=== PATIENT | female | born 1985 | race Caucasian/White ===

== ENCOUNTER 2018-08-07 10:46 | Emergency (ER) | payer OTHER, MEDICAID, SELFPAY ==
[2018-08-07 10:55] VITALS: BP 107/68; PULSE 76; RESP 12; TEMP 37; O2SAT 99
--- NOTE | 2018-08-07 12:21 | ED.SKABFB ---
HPI - Skin/Abscess/Foreign Bdy <Laney Mcintyre PA-C - Last Filed: 08/07/18 18:54> General Chief complaint: Skin/Abscess/Foreign Body Stated complaint: Possible ingrown toe nail, R big toe Time Seen by Provider: 08/07/18 11:04 Source: patient Mode of arrival: ambulatory Limitations: no limitations History of Present Illness HPI narrative: This 33-year-old female comes in due to concern for right ingrown toenail. She has not had ingrown nails on her ft in the past. She states this started to get painful 4 days ago, and much worse and more red since yesterday. She has not had any drainage from the toe. She has not had any fever or other new symptoms. She states that it is painful to wear shoes. She has been taking ibuprofen and wondering what else to do for pain as this has not been effective. She did not think she could get in to see her PCP before work so came here. She denies any other new complaints on systems review Related Data Home Medications Medication Instructions Recorded Confirmed acetaminophen [Tylenol] 325 mg PO PRN PRN 08/07/18 08/07/18 ibuprofen 200 mg PO PRN PRN 08/07/18 08/07/18 Allergies Allergy/AdvReac Type Severity Reaction Status Date / Time Penicillins Allergy Severe ANAPHYLAXIS Unverified 05/16/18 10:16 /FAREED Review of Systems <Laney Mcintyre PA-C - Last Filed: 08/07/18 18:54> Review of Systems All systems reviewed & are unremarkable except as noted in HPI and below Exam <Laney Mcintyre PA-C - Last Filed: 08/07/18 18:54> Narrative Exam Narrative: GENERAL APPEARANCE: Patient sitting comfortably, in no distress. LUNGS: Clear to auscultation bilaterally. HEART: Rate and rhythm regular without murmur, normal S1 and S2, no S3 or S4. DERMATOLOGIC: Right great toenail is erythematous and mildly edematous around the medial and proximal borders, tender to touch, no drainage, no erythema elsewhere MUSCULOSKELETAL: Normal range of motion of the right great toe and foot without tenderness NEUROVASCULAR: Right foot is warm and pink, sensation grossly intact Initial Vital Signs Initial Vital Signs: Vital Signs Temperature 98.6 F 08/07/18 10:55 Pulse Rate 76 08/07/18 10:55 Respiratory Rate 12 08/07/18 10:55 Blood Pressure 107/68 08/07/18 10:55 Pulse Oximetry 99 08/07/18 10:55 <Kana Garcia DO - Last Filed: 08/07/18 18:58> Initial Vital Signs Initial Vital Signs: Vital Signs Temperature 98.6 F 08/07/18 10:55 Pulse Rate 76 08/07/18 10:55 Respiratory Rate 12 08/07/18 10:55 Blood Pressure 107/68 08/07/18 10:55 Pulse Oximetry 99 08/07/18 10:55 Course <Lanye Mcintyre PA-C - Last Filed: 08/07/18 18:54> Vital Signs - 8 hr 08/07/18 10:55 Temperature 98.6 F Pulse Rate 76 Respiratory Rate 12 Blood Pressure 107/68 Pulse Oximetry 99 <Kana Garcia DO - Last Filed: 08/07/18 18:58> Vital Signs - 8 hr 08/07/18 10:55 Temperature 98.6 F Pulse Rate 76 Respiratory Rate 12 Blood Pressure 107/68 Pulse Oximetry 99 Discharge Plan Departure Patient Disposition: Home Clinical Impression: Infection, nail, ingrowing Discharge Date/Time: 08/07/18 13:07 Interventions: ED Discharge Assessment Last Done: 08/07/18 13:05 Instructions: DI for Ingrown Toenail Activity Restrictions/Additional Instructions: Please wear the surgical shoe for comfort and to keep pressure off of the toe. Hot soak your toe for 5-10 minutes at least 4-5 times daily, then try to free up the nail border by putting dental floss or cotton underneath, or you can use a file to gently elevate it. Take the prescription anti-inflammatory meloxicam once daily to help with pain and inflammation, and you can also add Tylenol as needed. Please call your PCP office today and arrange for follow-up in a few days for recheck. You can find out whether they removed toenails there if it is needed at that point, or you can call the local podiatrists (I have given you their number as well) Prescriptions: No Action acetaminophen [Tylenol] 325 mg Tablet 325 mg PO PRN PRN (Reason: Pain, Mild) RF: 0 ibuprofen 200 mg Tablet 200 mg PO PRN PRN (Reason: Pain, Mild) RF: 0 Referrals: [facility] [Provider Group] [facility] [Provider Group] <Kana Garcia DO - Last Filed: 08/07/18 18:58> Cosign ED Attending Cristina Attestation: I was immediately available in the department for consultation. Documentation has been reviewed. I agree with assessment and plan.
== END 2018-08-07 13:07 | disposition home or self-care (01) ==
PROVIDERS: Emergency Provider Internal Medicine; PCP Family Medicine
DX: L60.0 Ingrowing nail (principal)
CPT/HCPCS: 99282

== ENCOUNTER 2018-11-19 10:02 | Emergency (ER) | payer OTHER, MEDICAID, SELFPAY ==
[2018-11-19 10:22] VITALS: BP 138/78; PULSE 102; RESP 17; TEMP 36.9; O2SAT 100
[2018-11-19 10:45] LABS: Bacteria Urine Many (>30); Culture Indicated Urine Cult Not Indicated; RBC Urine 1-5/HPF (0-5/HPF); Squamous Epithelial Cell Urine 10-30 /HPF; WBC Urine 1-5/HPF (0-5/HPF)
--- NOTE | 2018-11-19 11:33 | ED_ITS ---
HPI - Back Pain/Injury General Chief Complaint: Back Pain/Injury Stated Complaint: LOWER BACK PAIN Time Seen by Provider: 11/19/18 11:06 Source: patient Mode of arrival: ambulatory Limitations: no limitations History of Present Illness HPI Narrative: Patient is a 33-year-old female who presents with right-sided back pain. It started this morning quite significant denies any radiation to her stomach no painful frequent urination. She has had the chills but denies any fever. Pain is nonradiating down her leg. She has chronic ongoing back pain she says this is something different. MD Complaint: back pain Duration: progressively worsening Location: right flank Related Data Home Medications Medication Instructions Recorded Confirmed acetaminophen [Tylenol] 325 mg PO PRN PRN 08/07/18 08/07/18 ibuprofen 200 mg PO PRN PRN 08/07/18 08/07/18 Previous Rx's Medication Instructions Recorded sulfamethoxazole-trimethoprim 1 tab PO Q12H #14 tab 11/19/18 Allergies Allergy/AdvReac Type Severity Reaction Status Date / Time Penicillins Allergy Severe ANAPHYLAXIS Verified 11/19/18 10:22 /FAREED Review of Systems Review of Systems ROS Unobtainable: All systems reviewed & are unremarkable except as noted in HPI and below Constitutional Denies body ache(s), Reports chills, Denies fatigue and Denies fever(s) Cardiovascular Denies chest pain, Denies irregular heart rhythm, Denies lightheadedness, Denies palpitations, Denies dyspnea, Denies dyspnea on exertion and Denies orthopnea Respiratory Denies cough, Denies dyspnea, Denies dyspnea on exertion and Denies wheezing Gastrointestinal Gastrointestinal: Denies abdominal pain, Denies change in bowel habits, Denies diarrhea, Denies nausea and Denies vomiting Musculoskeletal Denies back pain, Denies muscle weakness, Denies numbness and Denies tingling Integumentary/Breasts Denies pruritus, Denies erythema, Denies rash and Denies wounds Neurologic Denies numbness and Denies tingling Endocrine Denies fatigue and Denies palpitations Allergic/Immunologic Denies wheezing [facility] Medical History Factor 5 Leiden mutation, heterozygous (Chronic) Status post tubal ligation (Resolved) Surgical History Status post D&C (Resolved) Status post tonsillectomy (Resolved) Family History Brother Age: 24 Autism Mother Age: 65 Factor V Leiden Sister Age: 36 Factor V Leiden Social History Smoking Status: Former smoker Tobacco: How many years used: 14 second hand exposure: Yes alcohol intake: current (occasionally.) substance use type: does not use Family History Brother Age: 24 Autism Mother Age: 65 Factor V Leiden Sister Age: 36 Factor V Leiden Social History Smoking Status: Former smoker Tobacco: How many years used: 14 second hand exposure: Yes alcohol intake: current (occasionally.) substance use type: does not use Exam Initial Vital Signs Initial Vital Signs: Vital Signs Temperature 98.4 F 11/19/18 10:22 Pulse Rate 102 H 11/19/18 10:22 Respiratory Rate 17 11/19/18 10:22 Blood Pressure 138/78 11/19/18 10:22 Pulse Oximetry 100 11/19/18 10:22 GENERAL: lying on the left side appears slightly uncomfortable but nontoxic awake alert oriented x3 HEENT: Head atraumatic,EOMI, pupils reactive, CARDIOVASCULAR: Regular rate and rhythm without murmurs, rubs or gallops. RESPIRATORY: Breath sounds equal bilaterally, no wheezes rales or rhonchi. ABDOMEN: Soft, nontender. Normoactive bowel sounds all 4 quadrants. No guarding or rebound. : Mild right CVA tenderness EXTREMITIES: Normal range of motion, no clubbing or edema. Neurovascularly intact NEUROLOGICAL: Alert and oriented x4.Normal gait and speech. SKIN: Warm, dry, no laceration, no petechiae, no rashes or lesions. Course Orders Ordered: ED Orders 11/19/18 10:30 Urine Microscopic Stat 11/19/18 11:34 CT kidney ureter bladder (KUB) Stat 11/19/18 12:20 Basic Metabolic Panel Stat Complete Blood Count AUTO DIFF Stat Discontinued Medications Ketorolac Tromethamine (Toradol) 30 mg IV NOW ONE Stop: 11/19/18 11:37 Last Admin: 11/19/18 12:10 Dose: 30 mg Vital Signs - 8 hr 11/19/18 10:22 11/19/18 13:25 Temperature 98.4 F Pulse Rate 102 H 79 Respiratory Rate 17 20 Blood Pressure 138/78 119/83 Pulse Oximetry 100 100 MDM - Back Pain/Injury Lab Data Attestation: I reviewed the patient's lab results. Result diagrams: 11/19/18 12:20 11/19/18 12:20 Lab Results 11/19/18 11/19/18 11/19/18 Range/Units 10:30 12:20 12:20 WBC 14.0 H (4.5-11.0) X10^3/uL RBC 5.06 (4.0-5.2) X10^6/uL Hgb 15.2 (12.0-16.0) g/dL Hct 45.0 (36-46) % MCV 89.0 (80-100) fL MCH 30.0 (26-34) PG MCHC 33.7 (30-36) % RDW 13.3 (11.6-14.8) % Plt Count 251 (150-400) X10^3/uL Neut % (Auto) 70.2 (50-75) % Lymph % (Auto) 22.5 L (25-40) % [place] % (Auto) 5.5 (3-14) % Eos % (Auto) 1.1 L (2-4) % Baso % (Auto) 0.7 (0-2) % Neut # (Auto) 9800 H (2200-4087) /uL Lymph # (Auto) 3100 (1600-0326) /uL [place] # (Auto) 800 (0-900) /uL Eos # (Auto) 200 (0-450) /uL Baso # (Auto) 100 (0-100) /uL Sodium 141 (137-145) mmol/L Potassium 4.5 (3.4-5.1) mmol/L Chloride 105 (98-107) mmol/L Carbon Dioxide 27 (22-32) mmol/L BUN 11 (7-17) mg/dL Creatinine 0.70 (0.52-1.04) mg/dL Estimated GFR > 60.0 (>60) mL/min BUN/Creatinine Ratio 15.7 (6-22) Glucose 94 (70-100) mg/dL Calcium 9.2 (8.4-10.2) mg/dL Urine RBC 1-5/hpf (0-5/HPF) Urine WBC 1-5/hpf (0-5/HPF) Ur Squamous Epith Cells 10-30 /hpf H Urine Bacteria Many (>30) H (None) Ur Culture Indicated? Cult not indicated Point of Care Testing Test Results Negative Urine Dip Bedside Urine Glucose Negative Bedside Urine Bilirubin - Negative Bedside Urine Ketone - Negative Urine Specific [place] 1.025 Bedside Urine Occult Blood ++ Bedside Urine pH 6.0 Bedside Urine Protein +/- 15 Bedside Urine Urobilinogen - Negative Bedside Urine Nitrite - Negative Bedside Urine Leukocytes - Negative Esterase Imaging Data CT scan - abdomen: Radiologist's impression: PROCEDURE: CT KIDNEY URETER BLADDER (KUB) INDICATIONS: right flank pain TECHNIQUE: Noncontrast 5 mm thick sections acquired from the diaphragms to the symphysis. 5 mm thick coronal and sagittal reformats were then performed. For radiation dose reduction, the following was used: automated exposure control, adjustment of mA and/or kV according to patient size. COMPARISON: [facility], CT, ABDOMEN/PELVIS WITH CONTRAST, 06/25/2013, 15:09. FINDINGS: Image quality: Excellent. Lung bases: Lung bases are clear. Heart size is normal. Urinary system: Both kidneys are normal in size. No kidney stones. No hydronephrosis or perinephric fat stranding. Both ureters appear non-dilated throughout their expected courses. There is partial distention of the urinary bladder with suggestion of mild bladder wall thickening. No calcified bladder stones. Other solid organs: Liver is normal in size. Gallbladder demonstrates no calcified gallstones. Pancreas is normal in contours. Spleen is normal in size. No adrenal nodules. Peritoneum and bowel: Unenhanced bowel loops demonstrate normal wall thickness and caliber. The appendix is normal in appearance. There is mild colonic diverticulosis without acute diverticulitis. No free fluid or air. Nodes and vessels: No retroperitoneal or mesenteric adenopathy by size criteria. Aorta and inferior vena cava are normal in caliber. Abdominal wall: No ventral hernias. Pelvis: There is a small amount of endometrial fluid which appears within physiologic limits. There is a small left ovarian cyst measuring up to 1.5 cm likely representing a follicular cyst. No free pelvic fluid. No inguinal hernias or adenopathy. Bones: No suspicious bony lesions. No vertebral body compression fractures. IMPRESSION: 1. No evidence of nephrolithiasis or obstructive uropathy. 2. No evidence of appendicitis. 3. Suggestion of mild bladder wall thickening although the urinary bladder is incompletely distended. Recommend correlation with urinalysis for possible cystitis. 4. Small amount of endometrial fluid and small left ovarian cyst likely physiologic. If clinical concern persists, further evaluation may be obtained with a pelvic ultrasound. Dictated by: Reagan Chandler M.D. on 11/19/2018 at 12:25 MDM Narrative Medical decision making narrative: patient has significant pain with blood in her urine. No sign of kidney stone. Possible kidney infection. Will treat for kidney infection. He is not appear toxic she does have a mild leukocytosis she is afebrile. Discharge Plan Departure Patient Disposition: Home Clinical Impression: UTI (urinary tract infection) Qualifiers: Urinary tract infection type: acute pyelonephritis Qualified Code(s): N10 - Acute pyelonephritis Discharge Date/Time: 11/19/18 13:25 Interventions: ED Discharge Assessment Last Done: 11/19/18 13:25 Instructions: Kidney Infection Activity Restrictions/Additional Instructions: *You have been diagnosed with kidney infection *What to do: increase fluid intake, CT did not show any kidney stone *Continue to take medications as directed - Bactrim 1 pill twice a day for 7 days - Motrin 800 mg every 8 hr if needed for pain *Follow up with your primary care provider in 2-3 days *Return to ER if you should have fever inability keep antibiotics down worsening any new, worsening or concerning symptoms Prescriptions: New sulfamethoxazole-trimethoprim 800-160 mg tablet 1 tab PO Q12H Qty: 14 RF: 0 No Action acetaminophen [Tylenol] 325 mg Tablet 325 mg PO PRN PRN (Reason: Pain, Mild) RF: 0 ibuprofen 200 mg Tablet 200 mg PO PRN PRN (Reason: Pain, Mild) RF: 0 Referrals: Sasha Holland DO [Primary Care Provider] -
--- NOTE | 2018-11-19 12:03 | PC.NURSE ---
Attempts x2 for IV start. Unsuccessful
[2018-11-19] MEDS: KETOROLAC 60 MG/2 ML VIAL 30 MG IV (12:10)
[2018-11-19 12:26] LABS: Add Manual Diff / Slide Review NO; Basophils Absolute Auto 100 /uL (0-100); Basophils Percent Auto 0.7 % (0-2); Eosinophils Absolute Auto 200 /uL (0-450); Eosinophils Percent Auto 1.1 % (2-4); Hemoglobin 15.2 g/dL (12.0-16.0); Lymphocytes Absolute Auto 3100 /uL (1100-4500); Lymphocytes Percent Auto 22.5 % (25-40); Mean Corpuscular HGB Conc 33.7 % (30-36); Monocytes Absolute Auto 800 /uL (0-900); Monocytes Percent Auto 5.5 % (3-14); Neutrophils Absolute Auto 9800 /uL (1500-7000); Neutrophils Percent Auto 70.2 % (50-75); Platelet Count 251 X10^3/uL (150-400); Red Blood Cell Count 5.06 X10^6/uL (4.0-5.2); Red Cell Distribution Width 13.3 % (11.6-14.8)
[2018-11-19 12:36] LABS: BUN Creatinine Ratio 15.7 (6-22); Blood Urea Nitrogen 11 mg/dL (7-17); Calcium 9.2 mg/dL (8.4-10.2); Carbon Dioxide 27 mmol/L (22-32); Chloride 105 mmol/L (98-107); Estimated Glomerular Filt Rate > 60.0 mL/min (>60); Glucose 94 mg/dL (70-100); HEMOLYSIS < 15 (0-50); Potassium 4.5 mmol/L (3.4-5.1); Sodium 141 mmol/L (137-145)
[2018-11-19 13:25] VITALS: BP 119/83; PULSE 79; RESP 20; O2SAT 100
== END 2018-11-19 13:25 | disposition home or self-care (01) ==
PROVIDERS: Emergency Provider Emergency Medicine; PCP Family Medicine
DX: N10 Acute pyelonephritis (principal)
CPT/HCPCS: 36415; 74176; 80048; 81003; 81015; 81025; 85025; 96374; 99283; 99284; J1885

== ENCOUNTER 2018-12-12 23:13 | Emergency (ER) | payer OTHER, MEDICAID, SELFPAY ==
[2018-12-12 23:24] VITALS: BP 111/74; PULSE 86; RESP 15; TEMP 36.3; O2SAT 95; BMI 26.5
[2018-12-12 23:53] LABS: WBC Urine None Seen (0-5/HPF)
[2018-12-12 23:59] LABS: Hyaline Casts Urine 0-1/LPF; Mucus Urine 2+ (Negative); RBC Urine 1-5/HPF (0-5/HPF); Squamous Epithelial Cell Urine 0-1 /HPF
[2018-12-13] LABS: Bacteria Urine Occasional (0-1); Culture Indicated Urine Cult Not Indicated
[2018-12-13] MEDS: levoFLOXacin 250 MG TABLET 500 MG PO (02:09)
[2018-12-13 02:27] VITALS: BP 109/69; PULSE 73; RESP 12; O2SAT 95
--- NOTE | 2018-12-13 05:46 | ED_ITS ---
HPI - Female Genitourinary General Chief complaint: Urogenital-Female Stated complaint: thinks she has another kidney infection' Time Seen by Provider: 12/13/18 00:00 Source: patient and family Mode of arrival: ambulatory Limitations: no limitations History of Present Illness HPI Narrative: 33-year-old female former smoker with history of pyelonephritis and chronic low back pain presents with a chief complaint of an episode of hematuria over the weekend and now some midline lumbar pain and occasional radiation around her flanks. She denies dysuria, frequency or urgency. She denies fever or shaking chills. She denies nausea, vomiting or diarrhea. She denies vaginal bleeding or discharge. She denies any radiation of the pain down her legs. She states she has a long history of urinary tract infections that do not initially demonstrate classic findings and then progressed to pyelonephritis. MD Complaint: UTI Onset (ago): day(s) Location: suprapubic Female Urogenital Radiation: L Flank and R Flank Severity: mild Duration: constant Relieving factors: none Exacerbating factors: none Urinary symptoms: Flank Pain Related Data Home Medications Medication Instructions Recorded Confirmed acetaminophen [Tylenol] 325 mg PO PRN PRN 08/07/18 08/07/18 ibuprofen 200 mg PO PRN PRN 08/07/18 08/07/18 Previous Rx's Medication Instructions Recorded sulfamethoxazole-trimethoprim 1 tab PO Q12H #14 tab 11/19/18 ciprofloxacin HCl 500 mg PO BID 14 Days #28 tab 12/13/18 Allergies Allergy/AdvReac Type Severity Reaction Status Date / Time Penicillins Allergy Severe ANAPHYLAXIS Verified 12/12/18 23:24 /HIVES Review of Systems Constitutional Denies chills, Denies fever(s), Denies lethargy and Denies weakness Eyes Denies change in vision, Denies eye discharge, Denies irritation and Denies loss of vision ENT Ears, Nose, Mouth, and Throat: Denies change in voice, Denies neck pain and Denies sore throat Cardiovascular Denies chest pain, Denies irregular heart rhythm, Denies lightheadedness, Denies palpitations, Denies dyspnea, Denies dyspnea on exertion and Denies orthopnea Respiratory Denies cough, Denies dyspnea, Denies dyspnea on exertion and Denies wheezing Gastrointestinal Gastrointestinal: Denies abdominal pain, Denies change in bowel habits, Denies diarrhea, Denies nausea and Denies vomiting Genitourinary Reports hematuria, Denies flank pain, Denies urinary incontinence and Denies urinary urgency Musculoskeletal Reports back pain and Denies neck pain Integumentary/Breasts Denies pruritus, Denies erythema, Denies rash and Denies wounds Neurologic Denies confusion, Denies loss of vision and Denies weakness Psychiatric Denies anxiety, Denies confusion, Denies depression, Denies homicidal ideation and Denies suicidal ideation Endocrine Denies palpitations Hematologic/Lymphatic Denies easy bruising Allergic/Immunologic Denies wheezing [facility] Medical History Factor 5 Leiden mutation, heterozygous (Chronic) Status post tubal ligation (Resolved) Surgical History Status post D&C (Resolved) Status post tonsillectomy (Resolved) Family History Brother Age: 24 Autism Mother Age: 65 Factor V Leiden Sister Age: 36 Factor V Leiden Social History Smoking Status: Former smoker Tobacco: How many years used: 14 second hand exposure: Yes alcohol intake: current (occasionally.) substance use type: does not use Family History Brother Age: 24 Autism Mother Age: 65 Factor V Leiden Sister Age: 36 Factor V Leiden Social History Smoking Status: Former smoker Tobacco: How many years used: 14 second hand exposure: Yes alcohol intake: current (occasionally.) substance use type: does not use Exam Narrative Exam Narrative: GENERAL: 33-year-old female This is a well-nourished, well- developed patient, in mild distress. HEAD: Atraumatic. Normocephalic. No temporal or scalp tenderness. EYES: Pupils equal round and reactive. Extraocular motions intact. No scleral icterus. No injection or drainage. ENT: Nose without bleeding, purulent drainage or septal hematoma. Throat without erythema, tonsillar hypertrophy or exudate. Uvula midline. Airway patent. NECK: Trachea midline. No JVD or lymphadenopathy. Supple, nontender, no meningeal signs. CARDIOVASCULAR: Regular rate and rhythm without murmurs, gallops, or rubs. RESPIRATORY: Clear to auscultation. Breath sounds equal bilaterally. No wheezes, rales, or rhonchi. GASTROINTESTINAL: Abdomen soft, non-tender, nondistended. No hepato- splenomegaly, or palpable masses. No guarding. EXTREMITIES: No clubbing, cyanosis, or edema. No joint tenderness, effusion, or edema noted. BACK: pick pulling machine tender but free of any obvious external abnormalities. Patient exam notes decreased range of motion and muscle spasm, but no CVA tenderness, or vertebral point tenderness. There are no symptoms of cauda equina such as saddle anesthesia, and decreased reflexes, decreased sensation or strength. NEURO: AOx3. SKIN: No rash or erythema. Initial Vital Signs Initial Vital Signs: Vital Signs Temperature 97.4 F L 12/12/18 23:24 Pulse Rate 86 12/12/18 23:24 Respiratory Rate 15 12/12/18 23:24 Blood Pressure 111/74 12/12/18 23:24 Pulse Oximetry 95 12/12/18 23:24 Course Orders Ordered: ED Orders 12/12/18 23:30 Urine Microscopic Stat Discontinued Medications Levofloxacin (Levaquin) 500 mg PO NOW ONE Stop: 12/13/18 01:50 Last Admin: 12/13/18 02:09 Dose: 500 mg Vital Signs - 8 hr 12/12/18 23:24 12/13/18 02:27 Temperature 97.4 F L Pulse Rate 86 73 Respiratory Rate 15 12 Blood Pressure 111/74 Blood Pressure [Right Arm] 109/69 Pulse Oximetry 95 95 MDM - Female Genitourinary Lab Data Lab Results 12/12/18 Range/Units 23:30 Urine RBC 1-5/hpf (0-5/HPF) Urine WBC None seen (0-5/HPF) Ur Squamous Epith Cells 0-1 /hpf D Urine Bacteria Occasional (0-1) D (None) Hyaline Casts 0-1/lpf (None) Urine Mucus 2+ H (Negative) Ur Culture Indicated? Cult not indicated Point of Care Testing Test Results Negative Urine Dip Bedside Urine Glucose Negative Bedside Urine Bilirubin - Negative Bedside Urine Ketone - Negative Urine Specific [place] 1.030 Bedside Urine Occult Blood ++ Bedside Urine pH 6.0 Bedside Urine Protein +/- 15 Bedside Urine Urobilinogen +/- 1mg Bedside Urine Nitrite - Negative Bedside Urine Leukocytes - Negative Esterase MDM Narrative Medical decision making narrative: Patient had hematuria and now complains of bilateral flank pain, series of symptoms consistent with prior episodes of pyelonephritis for her. She frequently has similar scenarios where the initial UTI is missed and goes on to develop pyelonephritis. We discussed this at length and our initial urine does not suggest urinary tract infection but I am willing to give the antibiotic given her request and her prior experiences Discharge Plan Departure Patient Disposition: Home Clinical Impression: Back pain Qualifiers: Back pain location: low back pain Chronicity: acute Back pain laterality: bilateral Sciatica presence: without sciatica Qualified Code(s): M54.5 - Low back pain UTI (urinary tract infection) Qualifiers: Urinary tract infection type: acute pyelonephritis Qualified Code(s): N10 - Acute pyelonephritis Discharge Date/Time: 12/13/18 02:35 Interventions: ED Discharge Assessment Last Done: 12/13/18 02:35 Instructions: DI for Kidney Infection Activity Restrictions/Additional Instructions: *You have been diagnosed with [ low back pain, hematuria (blood in urine) and likely pyelonephritis (kidney infection) ] *What to do: *Take medications as directed: your antibiotic was electronically transmitted to [facility] in [place] *Follow up with your primary care provider in 2-3 days, call for an appointment. Let them know you were seen in the Emergency Department and that we ask that you be seen in follow up *Return to ER if you should have any new, worsening or concerning symptoms Prescriptions: New ciprofloxacin HCl 500 mg tablet 500 mg PO BID 14 Days Qty: 28 RF: 0 No Action sulfamethoxazole-trimethoprim 800-160 mg tablet 1 tab PO Q12H Qty: 14 RF: 0 acetaminophen [Tylenol] 325 mg Tablet 325 mg PO PRN PRN (Reason: Pain, Mild) RF: 0 ibuprofen 200 mg Tablet 200 mg PO PRN PRN (Reason: Pain, Mild) RF: 0 Referrals: Sasha Holland, [Primary Care Provider] -
== END 2018-12-13 02:35 | disposition home or self-care (01) ==
PROVIDERS: Emergency Provider Emergency Medicine; PCP Family Medicine
DX: M54.5 Low back pain (principal); N10 Acute pyelonephritis
CPT/HCPCS: 81003; 81015; 81025; 99283

== ENCOUNTER → 2019-02-01 10:19 | Outpatient (CLI) | payer OTHER, MEDICAID, SELFPAY ==
--- NOTE | 2019-02-01 10:21 | DI.US.S_ITS ---
PROCEDURE: US EXTREMITY NONVASC LOWER RT INDICATIONS: NODULE RIGHT UPPER THIGH TECHNIQUE: Real-time scanning was performed of the right mid upper thigh, with image documentation. COMPARISON: None. FINDINGS: Within the area of palpable abnormality at the right mid-upper thigh, there is a subcutaneous echogenic focus measuring 1.3 x 0.6 x 1.7 cm, although no definite vascularity. This findings technically nonspecific although could represent lipoma. IMPRESSION: Subcutaneous echogenic focus involving the right thigh in the area of concern. This could represent lipoma although technically nonspecific. Recommend clinical management and followup. If there are suspicious changes by palpation, repeat ultrasound could be performed, or dedicated contrast enhanced MRI could be considered. Dictated by: Willis Curran M.D. on 02/01/2019 at 10:50 Approved by: Willis Curran M.D. on 02/01/2019 at 10:52
== END ==
PROVIDERS: PCP Nurse Practitioner Family; Visit Provider Nurse Practitioner Family
DX: R22.41 Localized swelling, mass and lump, right lower limb (principal)
CPT/HCPCS: 76882

== ENCOUNTER 2019-04-24 14:40 | Emergency (ER) | payer OTHER, MEDICAID, SELFPAY ==
[2019-04-24 14:49] VITALS: BP 134/94; PULSE 83; RESP 13; TEMP 36.2; O2SAT 100
--- NOTE | 2019-04-24 14:54 | DI.RAD.S_ITS ---
PROCEDURE: XR CHEST 1V INDICATIONS: chest pain TECHNIQUE: One view of the chest was acquired. COMPARISON: [facility], CT, PE STUDY (CTA CHEST), 05/25/2016, 18:29. FINDINGS: Surgical changes and devices: None. Lungs and pleura: Lungs are clear. No pleural effusions or pneumothorax. Mediastinum: Mediastinal contours appear normal. Heart size is normal. Bones and chest wall: No suspicious bony lesions. Overlying soft tissues appear unremarkable. IMPRESSION: Normal for age, source of current chest pain symptoms is not seen. Dictated by: Raz Olivarez M.D. on 04/24/2019 at 15:35 Approved by: Raz Olivarez M.D. on 04/24/2019 at 15:38
[2019-04-24 15:16] LABS: Add Manual Diff / Slide Review NO; Basophils Absolute Auto 100 /uL (0-100); Basophils Percent Auto 0.9 % (0-2); Eosinophils Absolute Auto 300 /uL (0-450); Hematocrit 43.3 % (36-46); Hemoglobin 14.8 g/dL (12.0-16.0); Lymphocytes Absolute Auto 3500 /uL (1100-4500); Mean Corpuscular HGB Conc 34.3 % (30-36); Mean Corpuscular Hemoglobin 30.4 PG (26-34); Mean Corpuscular Volume 88.8 fL (80-100); Monocytes Absolute Auto 800 /uL (0-900); Neutrophils Absolute Auto 4800 /uL (1500-7000); Neutrophils Percent Auto 51.1 % (50-75); Platelet Count 227 X10^3/uL (150-400); Prothrombin Time 10.9 SECONDS (10.1-12.7); Red Blood Cell Count 4.88 X10^6/uL (4.0-5.2); Red Cell Distribution Width 12.9 % (11.6-14.8); White Blood Cell Count 9.4 X10^3/uL (4.5-11.0)
[2019-04-24 15:18] LABS: PTT Partial Thromboplastin Tim 21 SECONDS (26.4-36.2)
[2019-04-24 15:23] LABS: Alanine Aminotransferase 16 IU/L (9-52); Albumin 4.5 g/dL (3.5-5.0); Albumin Globulin Ratio 1.3 (1.0-2.8); Alkaline Phosphatase 78 U/L (38-126); Aspartate Aminotransferase 27 IU/L (14-36); BUN Creatinine Ratio 14.3 (6-22); Blood Urea Nitrogen 10 mg/dL (7-17); Calcium 9.3 mg/dL (8.4-10.2); Carbon Dioxide 25 mmol/L (22-32); Chloride 103 mmol/L (98-107); Creatine Kinase 79 U/L (30-135); Estimated Glomerular Filt Rate > 60.0 mL/min (>60); Globulin 3.4 g/dL (1.7-4.1); Glucose 87 mg/dL (70-100); HEMOLYSIS 20 (0-50); Lipase 194 U/L (23-300); Potassium 3.8 mmol/L (3.4-5.1); Sodium 140 mmol/L (137-145); Total Protein 7.9 g/dL (6.3-8.2)
[2019-04-24 15:34] VITALS: BP 125/80; PULSE 85; RESP 16; O2SAT 97
[2019-04-24 15:34] LABS: Troponin I < 0.012 ng/mL (0.01-0.034)
--- NOTE | 2019-04-24 15:53 | DI.CT.S_ITS ---
PROCEDURE: CT ANGIO CHEST PE PROTOCOL INDICATIONS: chest pain, hx pe TECHNIQUE: After the administration of intravenous contrast, 2 mm thick sections acquired from the pulmonary apices to the posterior costophrenic angles. 3-dimensional maximum intensity projection (MIP) coronal and sagittal reformats were then acquired through the thorax. For radiation dose reduction, the following was used: automated exposure control, adjustment of mA and/or kV according to patient size. COMPARISON: [facility], CR, XR CHEST 1V, 04/24/2019, 14:57. FINDINGS: Image quality: Excellent. Pulmonary arteries: Pulmonary arteries are normal in size, and demonstrate no intraluminal filling defects to suggest central pulmonary embolism. Lungs and pleura: Lungs are clear. No pleural effusions or pneumothorax. Central and peripheral airways are patent. Mediastinum: Heart size is normal, without pericardial effusion. No mediastinal or hilar adenopathy. Thoracic aorta is normal in caliber and enhancement. Esophagus is normal in caliber, without hiatal hernia. Bones and chest wall: No suspicious bony lesions. Ribs and thoracic spine appear intact throughout. Thyroid gland is unremarkable. No axillary or supraclavicular adenopathy. Abdomen: Hepatic cyst is noted. Visualized upper abdominal solid organs appear normal in the early arterial phase of enhancement. IMPRESSION: 1. Lungs are clear. No pulmonary embolism. Dictated by: Usha Jordan M.D. on 04/24/2019 at 17:43 Approved by: Usha Jordan M.D. on 04/24/2019 at 17:45
--- NOTE | 2019-04-24 15:53 | DI.US.S_ITS ---
PROCEDURE: US PERIPH VENOUS LOW EXTREM BI INDICATIONS: CALF PAIN, HX DVT TECHNIQUE: Real-time imaging, as well as color and pulse Doppler interrogation, were performed of the deep veins of both legs from the inguinal ligament to the popliteal fossa. COMPARISON: None. FINDINGS: Right: The common femoral, femoral and popliteal veins are normally compressible, and free of intraluminal thrombus. Color and pulse Doppler demonstrate normal phasic intravascular flow. There is normal augmentation response to distal compression maneuver. Left: The common femoral, femoral and popliteal veins are normally compressible, and free of intraluminal thrombus. Color and pulse Doppler demonstrate normal phasic intravascular flow. There is normal augmentation response to distal compression maneuver. IMPRESSION: No evidence of deep vein thrombosis of the bilateral lower extremities. Dictated by: Stephen Yang M.D. on 04/24/2019 at 16:06 Approved by: Stephen Yang M.D. on 04/24/2019 at 16:08
--- NOTE | 2019-04-24 17:04 | ED.CHESTPAIN ---
HPI - Chest Pain <CINDI Lorenz- - Last Filed: 04/24/19 20:46> General Chief Complaint: Chest Pain Stated Complaint: SHARP PAINS UNDERNEATH CHEST Time Seen by Provider: 04/24/19 15:48 Source: patient Mode of arrival: ambulatory Limitations: no limitations History of Present Illness HPI narrative: The patient is a 31-year-old female who presents with a chief complaint of right-sided chest pain. She is a nonsmoker with history of PE, DVT and factor 5 Leiden deficiency. She states she started having some right-sided chest pain this morning. She states that yesterday she had some left calf pain. She denies any nausea vomiting or diarrhea. She does have a chief complaint of right-sided chest pain, which does not extend into her left side. She states some radiation to her back. She denies possibility of as she has had her ?tubes tied. Related Data Home Medications Medication Instructions Recorded Confirmed acetaminophen [Tylenol] 325 mg PO PRN PRN 08/07/18 04/24/19 ibuprofen 200 mg PO PRN PRN 08/07/18 04/24/19 aspirin 81 mg tablet,delayed 81 mg PO DAILY PRN 04/24/19 04/24/19 release Previous Rx's Medication Instructions Recorded cyclobenzaprine 10 mg PO TID PRN #14 tab 04/24/19 ketorolac 10 mg PO TID PRN #10 tab 04/24/19 Allergies Allergy/AdvReac Type Severity Reaction Status Date / Time Penicillins Allergy Severe ANAPHYLAXIS Verified 04/24/19 14:15 /HIVKENRICK Review of Systems <PETRONA Lorenz - Last Filed: 04/24/19 20:46> Review of Systems GENERAL: Denies chills, fatigue, malaise, fever, sweats. HEENT: Denies sinus pain, ear pain, sore throat, difficulty swallowing, dizziness. RESPIRATORY: See HPI CARDIOVASCULAR: See HPI GASTROINTESTINAL: Denies nausea, vomiting, abdominal pain, diarrhea, constipation, melena. : Denies dysuria, frequency, incontinence, hematuria, urinary retention. MUSCULOSKELETAL: See HPI SKIN: Denies rash, skin lesions, or other NEUROLOGIC: Denies weakness, headache, numbness, change in speech, confusion, seizures, incoordination. PSYCHIATRIC: No concerning psychosocial issues. 12 point review of systems is negative except for those stated above PFSH <WALTER Lorenz - Last Filed: 04/24/19 20:46> Medical History Chronic low back pain (Acute) Pyelonephritis (Acute) Factor 5 Leiden mutation, heterozygous (Chronic) Status post tubal ligation (Resolved) Surgical History Status post D&C (Resolved) Status post tonsillectomy (Resolved) Family History Brother Age: 25 Autism Mother Age: 66 Factor V Leiden Sister Age: 37 Factor V Leiden Social History Smoking Status: Former smoker Tobacco: How many years used: 14 second hand exposure: Yes alcohol intake: current (1-2 beers or glasses or wine daily and 2 mixed drinks every other weekend.) substance use type: does not use Family History Brother Age: 25 Autism Mother Age: 66 Factor V Leiden Sister Age: 37 Factor V Leiden Social History Smoking Status: Former smoker Tobacco: How many years used: 14 second hand exposure: Yes alcohol intake: current (1-2 beers or glasses or wine daily and 2 mixed drinks every other weekend.) substance use type: does not use Exam <WALTER Lorenz - Last Filed: 04/24/19 20:46> Narrative Exam Narrative: GENERAL: This is a well-nourished, well-developed patient, no acute distress HEAD: Atraumatic. Normocephalic. No temporal or scalp tenderness. EYES: Pupils equal round and reactive. Extraocular motions intact. No scleral icterus. No injection or drainage. ENT: Nose without bleeding, purulent drainage or septal hematoma. Throat without erythema, tonsillar hypertrophy or exudate. Uvula midline. Airway patent. NECK: Trachea midline. No JVD or lymphadenopathy. Supple, nontender, no meningeal signs. CARDIOVASCULAR: Regular rate and rhythm without murmurs, gallops, or rubs. RESPIRATORY: Clear to auscultation. Breath sounds equal bilaterally. No wheezes, rales, or rhonchi. Cough and increased respiratory effort. No accessory muscle use. GASTROINTESTINAL: Abdomen soft, non-tender, nondistended. No hepato-splenomegaly, or palpable masses. No guarding. EXTREMITIES: No clubbing, cyanosis, or edema. No joint tenderness, effusion, or edema noted. BACK: Nontender without deformity or crepitance. No flank tenderness. NEURO: AOx3. SKIN: No rash or erythema. Initial Vital Signs Initial Vital Signs: Vital Signs Temperature 97.2 F L 04/24/19 14:49 Pulse Rate 83 04/24/19 14:49 Respiratory Rate 13 04/24/19 14:49 Blood Pressure 134/94 H 04/24/19 14:49 Pulse Oximetry 100 04/24/19 14:49 <Gricelda Kong DO - Last Filed: 04/25/19 20:00> Initial Vital Signs Initial Vital Signs: Vital Signs Temperature 97.2 F L 04/24/19 14:49 Pulse Rate 83 04/24/19 14:49 Respiratory Rate 13 04/24/19 14:49 Blood Pressure 134/94 H 04/24/19 14:49 Pulse Oximetry 100 04/24/19 14:49 Course <CINDI Lorenz-BC - Last Filed: 04/24/19 20:46> Orders Ordered: Discontinued Medications Cyclobenzaprine HCl (Flexeril) 10 mg PO NOW ONE Stop: 04/24/19 19:03 Last Admin: 04/24/19 19:45 Dose: 10 mg Ketorolac Tromethamine (Toradol) 30 mg IV NOW ONE Stop: 04/24/19 17:55 Last Admin: 04/24/19 17:57 Dose: 30 mg Vital Signs - 8 hr 04/24/19 14:49 04/24/19 15:34 04/24/19 17:33 Temperature 97.2 F L Pulse Rate 83 85 70 Respiratory Rate 13 16 9 L Blood Pressure 134/94 H Blood Pressure [Right Arm] 125/80 122/79 Pulse Oximetry 100 97 99 04/24/19 18:04 04/24/19 19:30 Temperature Pulse Rate 79 78 Respiratory Rate 28 H 15 Blood Pressure Blood Pressure [Right Arm] 131/82 125/68 Pulse Oximetry 100 98 <Gricelda Kong DO - Last Filed: 04/25/19 20:00> Orders Ordered: Discontinued Medications Cyclobenzaprine HCl (Flexeril) 10 mg PO NOW ONE Stop: 04/24/19 19:03 Last Admin: 04/24/19 19:45 Dose: 10 mg Ketorolac Tromethamine (Toradol) 30 mg IV NOW ONE Stop: 04/24/19 17:55 Last Admin: 04/24/19 17:57 Dose: 30 mg Vital Signs - 8 hr 04/24/19 14:49 04/24/19 15:34 04/24/19 17:33 Temperature 97.2 F L Pulse Rate 83 85 70 Respiratory Rate 13 16 9 L Blood Pressure 134/94 H Blood Pressure [Right Arm] 125/80 122/79 Pulse Oximetry 100 97 99 04/24/19 18:04 04/24/19 19:30 Temperature Pulse Rate 79 78 Respiratory Rate 28 H 15 Blood Pressure Blood Pressure [Right Arm] 131/82 125/68 Pulse Oximetry 100 98 MDM - Chest Pain <CINDI Lorenz-BC - Last Filed: 04/24/19 20:46> Lab Data Result diagrams: 04/24/19 14:59 04/24/19 14:59 Lab Results 04/24/19 04/24/19 04/24/19 Range/Units 14:59 14:59 14:59 WBC 9.4 (4.5-11.0) X10^3/uL RBC 4.88 (4.0-5.2) X10^6/uL Hgb 14.8 (12.0-16.0) g/dL Hct 43.3 (36-46) % MCV 88.8 (80-100) fL MCH 30.4 (26-34) PG MCHC 34.3 (30-36) % RDW 12.9 (11.6-14.8) % Plt Count 227 (150-400) X10^3/uL Neut % (Auto) 51.1 (50-75) % Lymph % (Auto) 37.0 (25-40) % [place] % (Auto) 8.0 (3-14) % Eos % (Auto) 3.0 (2-4) % Baso % (Auto) 0.9 (0-2) % Neut # (Auto) 4800 (1754-1269) /uL Lymph # (Auto) 3500 (4702-3914) /uL [place] # (Auto) 800 (0-900) /uL Eos # (Auto) 300 (0-450) /uL Baso # (Auto) 100 (0-100) /uL PT 10.9 (10.1-12.7) SECONDS INR 1.0 (0.9-1.3) APTT 21 L (26.4-36.2) SECONDS Sodium 140 (137-145) mmol/L Potassium 3.8 (3.4-5.1) mmol/L Chloride 103 (98-107) mmol/L Carbon Dioxide 25 (22-32) mmol/L BUN 10 (7-17) mg/dL Creatinine 0.70 (0.52-1.04) mg/dL Estimated GFR > 60.0 (>60) mL/min BUN/Creatinine Ratio 14.3 (6-22) Glucose 87 (70-100) mg/dL Calcium 9.3 (8.4-10.2) mg/dL Total Bilirubin 1.0 (0.2-1.3) mg/dL AST 27 (14-36) IU/L ALT 16 (9-52) IU/L Alkaline Phosphatase 78 (38-126) U/L Total Creatine Kinase 79 (30-135) U/L CK-MB (CK-2) TNP CK-MB (CK-2) Rel Index TNP Troponin I < 0.012 (0.01-0.034) ng/mL B-Natriuretic Peptide (<100) Total Protein 7.9 (6.3-8.2) g/dL Albumin 4.5 (3.5-5.0) g/dL Globulin 3.4 (1.7-4.1) g/dL Albumin/Globulin Ratio 1.3 (1.0-2.8) Lipase 194 (23-300) U/L 04/24/19 Range/Units 14:59 WBC (4.5-11.0) X10^3/uL RBC (4.0-5.2) X10^6/uL Hgb (12.0-16.0) g/dL Hct (36-46) % MCV (80-100) fL MCH (26-34) PG MCHC (30-36) % RDW (11.6-14.8) % Plt Count (150-400) X10^3/uL Neut % (Auto) (50-75) % Lymph % (Auto) (25-40) % [place] % (Auto) (3-14) % Eos % (Auto) (2-4) % Baso % (Auto) (0-2) % Neut # (Auto) (4982-5443) /uL Lymph # (Auto) (3372-7670) /uL [place] # (Auto) (0-900) /uL Eos # (Auto) (0-450) /uL Baso # (Auto) (0-100) /uL PT (10.1-12.7) SECONDS INR (0.9-1.3) APTT (26.4-36.2) SECONDS Sodium (137-145) mmol/L Potassium (3.4-5.1) mmol/L Chloride (98-107) mmol/L Carbon Dioxide (22-32) mmol/L BUN (7-17) mg/dL Creatinine (0.52-1.04) mg/dL Estimated GFR (>60) mL/min BUN/Creatinine Ratio (6-22) Glucose (70-100) mg/dL Calcium (8.4-10.2) mg/dL Total Bilirubin (0.2-1.3) mg/dL AST (14-36) IU/L ALT (9-52) IU/L Alkaline Phosphatase (38-126) U/L Total Creatine Kinase (30-135) U/L CK-MB (CK-2) CK-MB (CK-2) Rel Index Troponin I (0.01-0.034) ng/mL B-Natriuretic Peptide < 100 (<100) Total Protein (6.3-8.2) g/dL Albumin (3.5-5.0) g/dL Globulin (1.7-4.1) g/dL Albumin/Globulin Ratio (1.0-2.8) Lipase (23-300) U/L Imaging Data Venous US: Radiologist's impression: Mara Lakhani 34 F [address] [address] Ultrasound Report Signed Patient: Mara Lakhani LMR#: [id number] : 1985Acct:[id number] Age/Sex: 34 / FDate of Service: 04/24/19 Loc: ED Accession Number: [id number] Procedure: US periph venous low extrem bi Ordering Provider: Gricelda Montgomery PROCEDURE: US PERIPH VENOUS LOW EXTREM BI INDICATIONS: CALF PAIN, HX DVT TECHNIQUE: Real-time imaging, as well as color and pulse Doppler interrogation, were performed of the deep veins of both legs from the inguinal ligament to the popliteal fossa. COMPARISON: None. FINDINGS: Right: The common femoral, femoral and popliteal veins are normally compressible, and free of intraluminal thrombus. Color and pulse Doppler demonstrate normal phasic intravascular flow. There is normal augmentation response to distal compression maneuver. Left: The common femoral, femoral and popliteal veins are normally compressible, and free of intraluminal thrombus. Color and pulse Doppler demonstrate normal phasic intravascular flow. There is normal augmentation response to distal compression maneuver. IMPRESSION: No evidence of deep vein thrombosis of the bilateral lower extremities. Dictated by: Stephen Yang M.D. on 04/24/2019 at 16:06 Approved by: Stephen Yang M.D. on 04/24/2019 at 16:08 chest CTA: Radiologist's impression: [facility] Diagn[facility] DATE TYPE STATUS AUTHOR Hx 04/24/19 15:53 Stephen Yang 04/24/19 15:53 Usha Jordan 04/24/19 14:54 Raz Olivarez 02/01/19 10:21 Willis Curran 11/19/18 11:34 Reagan Chandler 04/22/18 13:00 CT Angiogram Chest 04/22/18 01:00 CT Chest Angiogram Mara Lakhani 34, F0 1985 DEP ER, ED.LOC - Main ED: R05 73.255kg VIP Chest Pain Search Chart No Data to Display ANAPHYLAXIS/HIVES ONSET 12/23/15 12/19/15 05/24/17 Today 19:30 Mara Lakhani 34 F [address] [address] [address] Scan Report Signed Patient: Mara Lakhani LMR#: [id number] : 1985Acct:[id number] Age/Sex: 34 / FDate of Service: 04/24/19 Loc: ED Accession Number: [id number] Procedure: CT angio chest PE protocol Ordering Provider: Gricelda Montgomery DISPENSING OPTICIAN-BC PROCEDURE: CT ANGIO CHEST PE PROTOCOL INDICATIONS: chest pain, hx pe TECHNIQUE: After the administration of intravenous contrast, 2 mm thick sections acquired from the pulmonary apices to the posterior costophrenic angles. 3-dimensional maximum intensity projection (MIP) coronal and sagittal reformats were then acquired through the thorax. For radiation dose reduction, the following was used: automated exposure control, adjustment of mA and/or kV according to patient size. [facility] 14[facility]57. FINDINGS: Image quality: Excellent. Pulmonary arteries: Pulmonary arteries are normal in size, and demonstrate no intraluminal filling defects to suggest central pulmonary embolism. Lungs and pleura: Lungs are clear. No pleural effusions or pneumothorax. Central and peripheral airways are patent. Mediastinum: Heart size is normal, without pericardial effusion. No mediastinal or hilar adenopathy. Thoracic aorta is normal in caliber and enhancement. Esophagus is normal in caliber, without hiatal hernia. Bones and chest wall: No suspicious bony lesions. Ribs and thoracic spine appear intact throughout. Thyroid gland is unremarkable. No axillary or supraclavicular adenopathy. Abdomen: Hepatic cyst is noted. Visualized upper abdominal solid organs appear normal in the early arterial phase of enhancement. IMPRESSION: 1. Lungs are clear. No pulmonary embolism. Dictated by: Usha Jordan M.D. on 04/24/2019 at 17:43 Approved by: Usha Jordan M.D. on 04/24/2019 at 17:45 Chest x-ray: Radiologist's impression: [address] [address] XRay Report Signed Patient: Mara Lakhani LMR#: [id number] : 1985Acct:[id number] Age/Sex: 34 / FDate of Service: 04/24/19 Loc: ED Accession Number: [id number] Procedure: XR chest 1V Ordering Provider: Gricelda Kong D.O. PROCEDURE: XR CHEST 1V INDICATIONS: chest pain TECHNIQUE: One view of the chest was acquired. COMPARISON: [facility], CT, PE STUDY (CTA CHEST), 05/25/2016, 18:29. FINDINGS: Surgical changes and devices: None. Lungs and pleura: Lungs are clear. No pleural effusions or pneumothorax. Mediastinum: Mediastinal contours appear normal. Heart size is normal. Bones and chest wall: No suspicious bony lesions. Overlying soft tissues appear unremarkable. IMPRESSION: Normal for age, source of current chest pain symptoms is not seen. Dictated by: Raz Olivarez M.D. on 04/24/2019 at 15:35 Approved by: Raz Olivarez M.D. on 04/24/2019 at 15:38 ECG Data Attestation: I personally reviewed and interpreted this ECG as follows: Interpretation: Sinus rhythm. Ventricular rate 71. No ST elevation or depression noted. No ectopy noted. viewed by Dr Kong 14:58 MDM Narrative Medical decision making narrative: The patient is a 34-year-old female with a complicated medical history including pulmonary embolism, deep vein thrombosis, factor 5 Leiden who presents for chief complaint of right-sided chest pain from her primary care office. She has multiple risk factors of blood clots, so I obtained a CT to evaluate for PE. Given hr complaint of lower leg pain yesterday, I did obtain an ultrasound. She also had a negative chest x-ray. Negative troponin. Her imaging was grossly normal. The patient did not want to wait for 2nd negative troponin. She she partially asked me if her right-sided chest pain could be from her boyfriend ?practicing CPR last week. I discussed that this could cause a muscle spasm or chest wall contusion. The patient is hemodynamically stable throughout her stay in the emergency department. Once I obtained her negative imaging, I did give her Toradol and Flexeril for her pain. I encouraged her to not allow anybody to ?practice CPR on her in the future. Discussed going back to the ER for any acute concerns such as chest pain, shortness of breath as well as follow-up with PCP. Patient has no questions or concerns upon discharge. <Gricelda Kong, DO - Last Filed: 04/25/19 20:00> Lab Data Lab Results 04/24/19 04/24/19 04/24/19 Range/Units 14:59 14:59 14:59 WBC 9.4 (4.5-11.0) X10^3/uL RBC 4.88 (4.0-5.2) X10^6/uL Hgb 14.8 (12.0-16.0) g/dL Hct 43.3 (36-46) % MCV 88.8 (80-100) fL MCH 30.4 (26-34) PG MCHC 34.3 (30-36) % RDW 12.9 (11.6-14.8) % Plt Count 227 (150-400) X10^3/uL Neut % (Auto) 51.1 (50-75) % Lymph % (Auto) 37.0 (25-40) % [place] % (Auto) 8.0 (3-14) % Eos % (Auto) 3.0 (2-4) % Baso % (Auto) 0.9 (0-2) % Neut # (Auto) 4800 (0372-0966) /uL Lymph # (Auto) 3500 (2644-5616) /uL [place] # (Auto) 800 (0-900) /uL Eos # (Auto) 300 (0-450) /uL Baso # (Auto) 100 (0-100) /uL PT 10.9 (10.1-12.7) SECONDS INR 1.0 (0.9-1.3) APTT 21 L (26.4-36.2) SECONDS Sodium 140 (137-145) mmol/L Potassium 3.8 (3.4-5.1) mmol/L Chloride 103 (98-107) mmol/L Carbon Dioxide 25 (22-32) mmol/L BUN 10 (7-17) mg/dL Creatinine 0.70 (0.52-1.04) mg/dL Estimated GFR > 60.0 (>60) mL/min BUN/Creatinine Ratio 14.3 (6-22) Glucose 87 (70-100) mg/dL Calcium 9.3 (8.4-10.2) mg/dL Total Bilirubin 1.0 (0.2-1.3) mg/dL AST 27 (14-36) IU/L ALT 16 (9-52) IU/L Alkaline Phosphatase 78 (38-126) U/L Total Creatine Kinase 79 (30-135) U/L CK-MB (CK-2) TNP CK-MB (CK-2) Rel Index TNP Troponin I < 0.012 (0.01-0.034) ng/mL B-Natriuretic Peptide (<100) Total Protein 7.9 (6.3-8.2) g/dL Albumin 4.5 (3.5-5.0) g/dL Globulin 3.4 (1.7-4.1) g/dL Albumin/Globulin Ratio 1.3 (1.0-2.8) Lipase 194 (23-300) U/L 04/24/19 Range/Units 14:59 WBC (4.5-11.0) X10^3/uL RBC (4.0-5.2) X10^6/uL Hgb (12.0-16.0) g/dL Hct (36-46) % MCV (80-100) fL MCH (26-34) PG MCHC (30-36) % RDW (11.6-14.8) % Plt Count (150-400) X10^3/uL Neut % (Auto) (50-75) % Lymph % (Auto) (25-40) % [place] % (Auto) (3-14) % Eos % (Auto) (2-4) % Baso % (Auto) (0-2) % Neut # (Auto) (0940-7359) /uL Lymph # (Auto) (7136-4336) /uL [place] # (Auto) (0-900) /uL Eos # (Auto) (0-450) /uL Baso # (Auto) (0-100) /uL PT (10.1-12.7) SECONDS INR (0.9-1.3) APTT (26.4-36.2) SECONDS Sodium (137-145) mmol/L Potassium (3.4-5.1) mmol/L Chloride (98-107) mmol/L Carbon Dioxide (22-32) mmol/L BUN (7-17) mg/dL Creatinine (0.52-1.04) mg/dL Estimated GFR (>60) mL/min BUN/Creatinine Ratio (6-22) Glucose (70-100) mg/dL Calcium (8.4-10.2) mg/dL Total Bilirubin (0.2-1.3) mg/dL AST (14-36) IU/L ALT (9-52) IU/L Alkaline Phosphatase (38-126) U/L Total Creatine Kinase (30-135) U/L CK-MB (CK-2) CK-MB (CK-2) Rel Index Troponin I (0.01-0.034) ng/mL B-Natriuretic Peptide < 100 (<100) Total Protein (6.3-8.2) g/dL Albumin (3.5-5.0) g/dL Globulin (1.7-4.1) g/dL Albumin/Globulin Ratio (1.0-2.8) Lipase (23-300) U/L Discharge Plan Departure Patient Disposition: Home Clinical Impression: Chest pain, muscular, Atypical chest pain Discharge Date/Time: 04/24/19 20:39 Interventions: ED Discharge Assessment Last Done: 04/24/19 20:39 Instructions: DI for Atypical Chest Pain, DI for Rib Contusion, DI for Chest Pain Activity Restrictions/Additional Instructions: Your CT showed no pulmonary embolism today. Your initial cardiac lab work came back negative. As we discussed, your pain may be related to her boyfriend practicing CPR on you. I have given her prescription of Toradol, do not combine this with any other NSAIDs such as Aleve or ibuprofen. Please follow up with primary care provider. Please come back to emergency department for any acute concerns such as chest pain, shortness of breath, concern of heart attack or stroke. Prescriptions: New cyclobenzaprine 10 mg tablet 10 mg PO TID PRN (Reason: muscle spasm) Qty: 14 RF: 0 ketorolac 10 mg tablet 10 mg PO TID PRN (Reason: pain) Qty: 10 RF: 0 No Action aspirin [Adult Low Dose Aspirin] 81 mg tablet,delayed release (DR/EC) 81 mg PO DAILY PRNRF: 0 acetaminophen [Tylenol] 325 mg Tablet 325 mg PO PRN PRN (Reason: Pain, Mild) RF: 0 ibuprofen 200 mg Tablet 200 mg PO PRN PRN (Reason: Pain, Mild) RF: 0 Referrals: Christy Judd ARNP [Primary Care Provider] - <Gricelda Kong DO - Last Filed: 04/25/19 20:00> Cosign ED Attending Belénature Attestation: I was immediately available in the department for consultation. This documentation has been reviewed and I agree with assessment and plan. Supervised by Gricelda Kong, DO
[2019-04-24 17:18] LABS: B Type Natriuretic Peptide < 100 (<100)
[2019-04-24 17:33] VITALS: BP 122/79; PULSE 70; RESP 9; O2SAT 99
[2019-04-24] MEDS: KETOROLAC 60 MG/2 ML VIAL 30 MG IV (17:57)
[2019-04-24 18:04] VITALS: BP 131/82; PULSE 79; RESP 28; O2SAT 100
[2019-04-24 19:30] VITALS: BP 125/68; PULSE 78; RESP 15; O2SAT 98
[2019-04-24] MEDS: CYCLOBENZAPRINE 10 MG TABLET PO (19:45)
== END 2019-04-24 20:39 | disposition home or self-care (01) ==
PROVIDERS: Emergency Medicine; Emergency Provider Nurse Practitioner Family; Family Provider Nurse Practitioner Family; PCP Nurse Practitioner Family
DX: R07.89 Other chest pain (principal); Z86.718 Personal history of other venous thrombosis and embolism; Z86.711 Personal history of pulmonary embolism
CPT/HCPCS: 36591; 71045; 71275; 80053; 82550; 83690; 83880; 84484; 85025; 85610; 85730; 93005; 93970; 96374; 99283; 99285; J1885; Q9967

== ENCOUNTER 2019-07-31 10:42 | Emergency (ER) | payer OTHER, MEDICAID, SELFPAY ==
[2019-07-31 10:46] VITALS: BP 137/100; PULSE 84; RESP 16; TEMP 36.5; O2SAT 100; BMI 29.2
--- NOTE | 2019-07-31 11:07 | ED_ITS ---
HPI - Neck Pain/Injury General Chief Complaint: Neck Pain/Injury Stated Complaint: neck pain Time Seen by Provider: 07/31/19 10:47 Source: patient Mode of arrival: Ambulatory Limitations: no limitations History of Present Illness HPI Narrative: Patient is a 34-year-old female. She states she has factor 5 Leiden. Has had DVT/PE in the past. She is not currently on anticoagulation. Here for evaluation of right-sided posterior neck pain and also tingling to the right side of her face. States the symptoms started yesterday. Did heat and massage last evening without any improvement. Also did muscle relaxers that she had at home without any improvement as well. Related Data Home Medications Medication Instructions Recorded Confirmed acetaminophen [Tylenol] 325 mg PO PRN PRN 08/07/18 04/24/19 ibuprofen 200 mg PO PRN PRN 08/07/18 04/24/19 aspirin 81 mg tablet,delayed 81 mg PO DAILY PRN 04/24/19 04/24/19 release Previous Rx's Medication Instructions Recorded cyclobenzaprine 10 mg tablet 10 mg PO TID PRN #14 tab 07/20/19 acyclovir 800 mg PO 5XD 7 Days #35 tab 07/31/19 Allergies Allergy/AdvReac Type Severity Reaction Status Date / Time Penicillins Allergy Severe ANAPHYLAXIS Verified 07/31/19 10:46 /FAREED Review of Systems Constitutional Constitutional: Denies fever(s) Eyes Comments: No change in vision ENT Comments: Tingling to the right side of the face Cardiovascular Cardiovascular: Denies chest pain and Denies dyspnea Respiratory Respiratory: Denies dyspnea Gastrointestinal Gastrointestinal: Denies abdominal pain, Denies nausea and Denies vomiting Genitourinary Genitourinary: Denies dysuria Musculoskeletal Musculoskeletal: Denies arthralgias and Reports tingling (Right-sided face) Integumentary/Breasts Skin/Breast: Denies rash Neurologic Neurologic: Reports tingling (Right-sided face) Hematologic/Lymphatic Hematologic/Lymphatic: Denies easy bleeding and Denies easy bruising Patient History Medical History (Updated 07/31/19 @ 11:18 by Hilton Serrano DO) Chronic low back pain (Acute) Factor 5 Leiden mutation, heterozygous (Chronic) Pulmonary embolism (12/23/15) Pyelonephritis (Acute) Surgical History Status post D&C (Resolved) Status post tonsillectomy (Resolved) Status post tubal ligation (Resolved) Social History Smoking Status: Former smoker Tobacco: How many years used: 14 second hand exposure: Yes alcohol intake: current (1-2 beers or glasses or wine daily and 2 mixed drinks every other weekend.) substance use type: does not use alcohol intake frequency: holidays/special occasions only Substance Use Type: does not use Exam Initial Vital Signs Initial Vital Signs: Vital Signs Temperature 97.7 F 07/31/19 10:46 Pulse Rate 84 07/31/19 10:46 Respiratory Rate 16 07/31/19 10:46 Blood Pressure 137/100 H 07/31/19 10:46 Pulse Oximetry 100 07/31/19 10:46 Const General: cooperative, comfortable and well developed Orientation: alert, awake and oriented x3 HENMT Head: normal to inspection and atraumatic Ears: TM's normal bilaterally Nose: external nose normal Face and sinus: normal facial exam Mouth: oral mucosae normal Eyes Pupils: PERRL EOM: EOM intact bilaterally Resp Effort & Inspection: normal respiratory effort Auscultation: clear to auscultation bilaterally Cardio Rate: regular rate Rhythm: regular rhythm Skin Lesions: no lesions Rashes: no rashes Neuro General: alert, awake and oriented x3 Cranial Nerves: CN's II-XI intact bilaterally Cognition: normal cognition Speech: speech normal Gait: normal gait Motor: muscle tone normal throughout Extrem General: normal to inspection and capillary refill normal Psych Appearance: grossly normal and well kempt Course Vital Signs Vital signs: Vital Signs - 8 hr 07/31/19 10:46 Temperature 97.7 F Pulse Rate 84 Respiratory Rate 16 Blood Pressure 137/100 H Pulse Oximetry 100 MDM - Neck Pain/Injury MDM Narrative Medical decision making narrative: Patient is a normal neurologic exam today. Y ears are unremarkable. She has normal objective cranial nerve exam. She does report some tingling with sensation to the right side of her face. Potentially 1 small posterior cervical lymph node on the right that she states is somewhat tender. Patient was concerned about a blood clot given her history of factor 5. I do feel like given her symptoms today that this is unlikely. I considered zoster given her pain and tingling however she has no rash today. Will send her home with a prescription for acyclovir and she will start taking if she develops a rash. We did discuss heat and ice and Motrin and Tylenol. We also discussed light stretching. She was given return precautions and follow-up instructions. She expressed understanding and agreement with plan. Discharge Plan Departure Patient Disposition: Home Clinical Impression: Neck pain, Facial paresthesia Instructions: DI for Neck Pain, DI for Numbness/tingling Activity Restrictions/Additional Instructions: I feel that the chances of a blood clot causing your symptoms today are unlikely. Recommend you start Tylenol/ibuprofen. You can also continue to heat and ice and massage. Contact your primary provider for follow-up. Continue all of her other medications as directed. If you develop a rash over the next day or so start taking the prescription medication your given today. Prescriptions: New acyclovir 800 mg tablet 800 mg PO 5XD 7 Days Qty: 35 RF: 0 No Action cyclobenzaprine 10 mg tablet 10 mg PO TID PRN (Reason: muscle spasm) Qty: 14 RF: 0 aspirin [Adult Low Dose Aspirin] 81 mg tablet,delayed release (DR/EC) 81 mg PO DAILY PRNRF: 0 acetaminophen [Tylenol] 325 mg Tablet 325 mg PO PRN PRN (Reason: Pain, Mild) RF: 0 ibuprofen 200 mg Tablet 200 mg PO PRN PRN (Reason: Pain, Mild) RF: 0 Referrals: Christy Judd ARNP [Primary Care Provider] -
== END 2019-07-31 11:26 | disposition home or self-care (01) ==
PROVIDERS: Emergency Provider Emergency Medicine; Family Provider Nurse Practitioner Family; PCP Nurse Practitioner Family
DX: M54.2 Cervicalgia (principal); R20.2 Paresthesia of skin
CPT/HCPCS: 99283

== ENCOUNTER 2020-02-26 18:47 | Emergency (ER) | payer OTHER, MEDICAID, SELFPAY ==
[2020-02-26 18:52] VITALS: BP 129/92; PULSE 87; RESP 20; TEMP 36.7; O2SAT 98
--- NOTE | 2020-02-26 18:56 | DI.RAD.S_ITS ---
PROCEDURE: XR CHEST 1V INDICATIONS: cp TECHNIQUE: One view of the chest was acquired. COMPARISON: [facility], CR, XR CHEST 1V, 04/24/2019, 14:57. FINDINGS: Surgical changes and devices: None. Lungs and pleura: Lungs are clear. No pleural effusions or pneumothorax. Mediastinum: Mediastinal contours appear normal. Heart size is normal. Bones and chest wall: No suspicious bony lesions. Overlying soft tissues appear unremarkable. IMPRESSION: Stable radiographic evaluation of the chest without acute cardiopulmonary abnormalities or focal airspace disease. Dictated by: Ben Howard M.D. on 02/26/2020 at 20:57 Approved by: Ben Howard M.D. on 02/26/2020 at 20:58
--- NOTE | 2020-02-26 19:31 | ED.CHESTPAIN ---
HPI - Chest Pain General Chief Complaint: Chest Pain Stated Complaint: CHEST PAIN KNEE PAIN Time Seen by Provider: 02/26/20 19:09 Source: patient Mode of arrival: Ambulatory Limitations: no limitations History of Present Illness HPI narrative: 34-year-old female here for evaluation of right-sided chest pain/pressure. Patient states that she has had the symptoms for the past day or so. Patient states she has had 2 prior pulmonary embolisms in the past. The 1st 1 was when she was and the 2nd 1 when she was . She is not currently on anti coagulation. She states that her primary doctor took her off the anticoagulation after her last . She states she is unsure as to why she was having the pulmonary embolisms. She states she was told it was because she was and had a plane flight while she was . She is concerned that potentially this is was happening again. Has not tried anything for symptoms prior to arrival. No shortness of breath. No lower extremity swelling. She is complaining of some bilateral knee pain. She has had this for several weeks now. Has not seen her primary doctor regarding them. Has not tried anything for her symptoms prior to arrival Related Data Home Medications Medication Instructions Recorded Confirmed acetaminophen [Tylenol] 325 mg PO PRN PRN 08/07/18 04/24/19 ibuprofen 200 mg PO PRN PRN 08/07/18 04/24/19 aspirin 81 mg tablet,delayed 81 mg PO DAILY PRN 04/24/19 04/24/19 release Previous Rx's Medication Instructions Recorded cyclobenzaprine 10 mg tablet 10 mg PO TID PRN #14 tab 07/20/19 Allergies Allergy/AdvReac Type Severity Reaction Status Date / Time Penicillins Allergy Severe ANAPHYLAXIS Verified 07/31/19 10:46 /HIVES Review of Systems Constitutional Constitutional: Denies fever(s) and Denies headache(s) ENT Ears, Nose, Mouth, and Throat: Denies headache(s) Cardiovascular Cardiovascular: Reports chest pain and Denies dyspnea Respiratory Respiratory: Denies cough and Denies dyspnea Gastrointestinal Gastrointestinal: Denies abdominal pain Musculoskeletal Musculoskeletal: Reports arthralgias (Bilateral knee pain) Integumentary/Breasts Skin/Breast: Denies lesions and Denies rash Neurologic Neurologic: Denies behavioral changes and Denies headache(s) Psychiatric Psychiatric: Denies behavioral changes Hematologic/Lymphatic Hematologic/Lymphatic: Denies easy bleeding and Denies easy bruising Allergic/Immunologic Allergic/Immunologic: Denies urticaria Patient History Medical History Chronic low back pain (Acute) Factor 5 Leiden mutation, heterozygous (Chronic) Pulmonary embolism (12/23/15) Pyelonephritis (Acute) Surgical History Status post D&C (Resolved) Status post tonsillectomy (Resolved) Status post tubal ligation (Resolved) Family History Brother Age: 26 Autism Mother Age: 67 Factor V Leiden Sister Age: 38 Factor V Leiden Social History Smoking Status: Current some day smoker Tobacco: How many years used: 14 second hand exposure: Yes alcohol intake: current (1-2 beers or glasses or wine daily and 2 mixed drinks every other weekend.) substance use type: does not use Smoking Status: Current some day smoker alcohol intake frequency: holidays/special occasions only Substance Use Type: does not use Exam Initial Vital Signs Initial Vital Signs: Vital Signs Temperature 98.0 F 02/26/20 18:52 Pulse Rate 87 02/26/20 18:52 Respiratory Rate 20 02/26/20 18:52 Blood Pressure 129/92 H 02/26/20 18:52 Pulse Oximetry 98 02/26/20 18:52 Const General: cooperative and comfortable Limitations: mental status not altered HENMT Head: normal to inspection and normocephalic Resp Effort & Inspection: normal respiratory effort Auscultation: clear to auscultation bilaterally Cardio Rate: regular rate Rhythm: regular rhythm GI Inspection: non-distended Palpation: soft Skin Lesions: no lesions Rashes: no rashes Neuro General: alert, awake and oriented x3 Cognition: normal cognition Speech: speech normal Extrem General: normal to inspection and capillary refill normal Right lower extremity: knee Details: normal to inspection Left lower extremity: knee Details: normal to inspection Psych Appearance: grossly normal and well kempt Scores GCS [place] coma scale eye opening: Spontaneous [place] coma scale verbal response: Orientated Shea coma scale motor response: Obey commands [place] coma scale total score: 15 Course Orders Ordered: ED Orders 02/26/20 18:56 XR chest 1V Stat EKG-12 Lead Stat 02/26/20 19:20 Complete Blood Count AUTO DIFF Stat Test Serum,Qual Stat 02/26/20 19:32 CT angio chest PE protocol Stat 02/26/20 20:12 Comprehensive Metabolic Panel Stat Lipase Stat Troponin & CK Cardiac Panel Stat Discontinued Medications Aspirin (Aspirin Chew) 324 mg PO NOW ONE Stop: 02/26/20 18:56 Last Admin: 02/26/20 19:45 Dose: 324 mg Documented by: [email or web address] Sodium Chloride (Normal Saline 0.9%) 1,000 mls @ 150 mls/hr IV CONT ESAU Vital Signs Vital signs: Vital Signs - 8 hr 02/26/20 18:52 02/26/20 21:35 Temperature 98.0 F Pulse Rate 87 76 Respiratory Rate 20 23 Blood Pressure 129/92 H 169/80 H Pulse Oximetry 98 98 MDM - Chest Pain Lab Data Attestation: I reviewed the patient's lab results. Result diagrams: 02/26/20 19:20 02/26/20 20:12 Labs: Lab Results 02/26/20 02/26/20 02/26/20 Range/Units 19:20 19:20 20:12 WBC 9.7 (4.5-11.0) X10^3/uL RBC 4.89 (4.0-5.2) X10^6/uL Hgb 15.0 (12.0-16.0) g/dL Hct 43.6 (36-46) % MCV 89.2 (80-100) fL MCH 30.7 (26-34) PG MCHC 34.4 (30-36) % RDW 13.0 (11.6-14.8) % Plt Count 183 (150-400) X10^3/uL Neut % (Auto) 53.3 (50-75) % Lymph % (Auto) 37.2 (25-40) % [place] % (Auto) 7.7 (3-14) % Eos % (Auto) 1.1 L (2-4) % Baso % (Auto) 0.7 (0-2) % Neut # (Auto) 5200 (9573-8156) /uL Lymph # (Auto) 3600 (3273-0575) /uL [place] # (Auto) 700 (0-900) /uL Eos # (Auto) 100 (0-450) /uL Baso # (Auto) 100 (0-100) /uL Sodium 139 (137-145) mmol/L Potassium 4.0 (3.4-5.1) mmol/L Chloride 109 H (98-107) mmol/L Carbon Dioxide 22 (22-32) mmol/L BUN 16 (7-17) mg/dL Creatinine 0.63 (0.52-1.04) mg/dL Estimated GFR > 60.0 (>60) mL/min BUN/Creatinine Ratio 25.4 H (6-22) Glucose 130 H (70-100) mg/dL Calcium 9.1 (8.4-10.2) mg/dL Total Bilirubin 0.5 (0.2-1.3) mg/dL AST 23 (14-36) IU/L ALT 15 (<35) IU/L Alkaline Phosphatase 62 (38-126) U/L Total Creatine Kinase 70 (30-135) U/L CK-MB (CK-2) TNP CK-MB (CK-2) Rel Index TNP Troponin I < 0.012 (0.01-0.034) ng/mL Total Protein 7.6 (6.3-8.2) g/dL Albumin 4.4 (3.5-5.0) g/dL Globulin 3.2 (1.7-4.1) g/dL Albumin/Globulin Ratio 1.4 (1.0-2.8) Lipase 260 (23-300) U/L Serum , Qual Negative (Negative) Imaging Data Chest x-ray: Radiologist's Impression: Mara Lakhani 34 F [address] [address] XRay Report Signed Patient: Mara Lakhani LMR#: [id number] : 1985Acct:[id number] Age/Sex: 34 / FDate of Service: 02/26/20 Loc: ED Accession Number: [id number] Procedure: XR chest 1V Ordering Provider: Kana Garcia D.O. PROCEDURE: XR CHEST 1V INDICATIONS: cp TECHNIQUE: One view of the chest was acquired. COMPARISON: [facility], , XR CHEST 1V, 04/24/2019, 14:57. FINDINGS: Surgical changes and devices: None. Lungs and pleura: Lungs are clear. No pleural effusions or pneumothorax. Mediastinum: Mediastinal contours appear normal. Heart size is normal. Bones and chest wall: No suspicious bony lesions. Overlying soft tissues appear unremarkable. IMPRESSION: Stable radiographic evaluation of the chest without acute cardiopulmonary abnormalities or focal airspace disease. Dictated by: Ben Howard M.D. on 02/26/2020 at 20:57 Approved by: Ben Howard M.D. on 02/26/2020 at 20:58 CT scan - chest: Radiologist's Impression: [place] [address] CT Scan Report Signed Patient: Mara Lakhani LMR#: [id number] : 1985Acct:[id number] Age/Sex: 34 / FDate of Service: 02/26/20 Loc: ED Accession Number: [id number] Procedure: CT angio chest PE protocol Ordering Provider: Hilton Serrano D.O. PROCEDURE: CT ANGIO CHEST PE PROTOCOL INDICATIONS: Right-sided chest pain, shortness of breath, history of PE TECHNIQUE: After the administration of intravenous contrast, 2 mm thick sections acquired from the pulmonary apices to the posterior costophrenic angles. 3-dimensional maximum intensity projection (MIP) coronal and sagittal reformats were then acquired through the thorax. For radiation dose reduction, the following was used: automated exposure control, adjustment of mA and/or kV according to patient size. COMPARISON: [facility], CT, PE STUDY (CTA CHEST), 05/25/2016, 18:29. [facility], CT, CT ANGIO CHEST PE PROTOCOL, 04/24/2019, 16:43. FINDINGS: Image quality: Excellent. Pulmonary arteries: Pulmonary arteries are normal in size, and demonstrate no intraluminal filling defects to suggest central pulmonary embolism. Lungs and pleura: Stable 3-4 mm peripheral left upper lobe nodule seen on image 144, series 5. It stability since 2016 supports a benign process. Lungs are otherwise clear. No pleural effusions or pneumothorax. Central and peripheral airways are patent. Mediastinum: Heart size is normal, without pericardial effusion. No mediastinal or hilar adenopathy. Thoracic aorta is normal in caliber and enhancement. Esophagus is normal in caliber, without hiatal hernia. Bones and chest wall: No suspicious bony lesions. Ribs and thoracic spine appear intact throughout. Thyroid gland is unremarkable. No axillary or supraclavicular adenopathy. Abdomen: Visualized upper abdominal solid organs appear normal in the early arterial phase of enhancement. IMPRESSION: No acute pulmonary emboli. No acute cardiopulmonary abnormalities identified. Dictated by: Ben Howard M.D. on 02/26/2020 at 21:09 Approved by: Ben Howard M.D. on 02/26/2020 at 21:15 ECG Data Attestation: I personally reviewed and interpreted this ECG as follows: Prior ECG tracings: not available for review Interpretation: Sinus rhythm Ventricular rate 83 Normal axis Normal QRS Normal QTC No ST T wave changes MDM Narrative Medical decision making narrative: Patient's EKG, chest x-ray and CTA are unremarkable. Have low suspicion for ACS. Low suspicion for pulmonary embolism. Low suspicion for heart failure. No pneumonia seen on the CT. Her labs are unremarkable. When the patient that she needs to follow-up with her primary doctor regarding her chronic knee pain. Informed her that her workup of the chest pain here in the emergency department does not show any acute emergent pathology although she was given strict return precautions regarding this. Also informed her that she should talk with her primary doctor about starting on a anticoagulation given the fact she has had 2 pulmonary embolisms. Patient expressed understanding and agreement. Discharge Plan Departure Patient Disposition: Home Clinical Impression: Atypical chest pain Discharge Date/Time: 02/26/20 21:35 Instructions: DI for Atypical Chest Pain Activity Restrictions/Additional Instructions: Recommend you continue all of your medications as directed. Contact your primary provider for follow-up. Return to the emergency department for any new or worsening symptoms Prescriptions: No Action cyclobenzaprine 10 mg tablet 10 mg PO TID PRN (Reason: muscle spasm) Qty: 14 RF: 0 aspirin [Adult Low Dose Aspirin] 81 mg tablet,delayed release (DR/EC) 81 mg PO DAILY PRNRF: 0 acetaminophen [Tylenol] 325 mg Tablet 325 mg PO PRN PRN (Reason: Pain, Mild) RF: 0 ibuprofen 200 mg Tablet 200 mg PO PRN PRN (Reason: Pain, Mild) RF: 0 Referrals: Christy Judd ARNP [Primary Care Provider] - Stand Alone Forms: Work Release Note
[2020-02-26] MEDS: ASPIRIN 81 MG CHEW TAB 324 MG PO (19:45)
[2020-02-26 19:46] LABS: Add Manual Diff / Slide Review NO; Basophils Absolute Auto 100 /uL (0-100); Basophils Percent Auto 0.7 % (0-2); Eosinophils Absolute Auto 100 /uL (0-450); Eosinophils Percent Auto 1.1 % (2-4); Hematocrit 43.6 % (36-46); Lymphocytes Absolute Auto 3600 /uL (1100-4500); Lymphocytes Percent Auto 37.2 % (25-40); Mean Corpuscular HGB Conc 34.4 % (30-36); Mean Corpuscular Hemoglobin 30.7 PG (26-34); Mean Corpuscular Volume 89.2 fL (80-100); Monocytes Absolute Auto 700 /uL (0-900); Monocytes Percent Auto 7.7 % (3-14); Neutrophils Absolute Auto 5200 /uL (1500-7000); Neutrophils Percent Auto 53.3 % (50-75); Platelet Count 183 X10^3/uL (150-400); Red Blood Cell Count 4.89 X10^6/uL (4.0-5.2); White Blood Cell Count 9.7 X10^3/uL (4.5-11.0)
[2020-02-26 19:53] LABS: Pregnancy Test Serum,Qual Negative (Negative)
[2020-02-26 20:32] LABS: Alanine Aminotransferase 15 IU/L (<35); Albumin 4.4 g/dL (3.5-5.0); Albumin Globulin Ratio 1.4 (1.0-2.8); Alkaline Phosphatase 62 U/L (38-126); Aspartate Aminotransferase 23 IU/L (14-36); BUN Creatinine Ratio 25.4 (6-22); Bilirubin Total 0.5 mg/dL (0.2-1.3); Blood Urea Nitrogen 16 mg/dL (7-17); Calcium 9.1 mg/dL (8.4-10.2); Carbon Dioxide 22 mmol/L (22-32); Chloride 109 mmol/L (98-107); Creatine Kinase 70 U/L (30-135); Estimated Glomerular Filt Rate > 60.0 mL/min (>60); Globulin 3.2 g/dL (1.7-4.1); Glucose 130 mg/dL (70-100); HEMOLYSIS 22 (0-50); Lipase 260 U/L (23-300); Sodium 139 mmol/L (137-145); Total Protein 7.6 g/dL (6.3-8.2)
[2020-02-26 20:43] LABS: Troponin I < 0.012 ng/mL (0.01-0.034)
[2020-02-26 21:35] VITALS: BP 169/80; PULSE 76; RESP 23; O2SAT 98
== END 2020-02-26 21:35 | disposition home or self-care (01) ==
PROVIDERS: Emergency Medicine; Emergency Provider Emergency Medicine; Family Provider Nurse Practitioner Family; PCP Nurse Practitioner Family
DX: R07.89 Other chest pain (principal); R06.02 Shortness of breath
CPT/HCPCS: 36415; 71045; 71275; 80053; 82550; 83690; 84484; 84703; 85025; 93005; 99284; Q9967

== ENCOUNTER 2020-04-19 18:56 | Emergency (ER) | payer OTHER, MEDICAID, SELFPAY ==
[2020-04-19] VITALS (9 sets, daily range): BP systolic 127–148; BP diastolic 85–97; PULSE 64–102; RESP 18; TEMP 36.7–36.8; O2SAT 96–100; BMI 26.5
--- NOTE | 2020-04-19 19:09 | ED.GENADULT ---
HPI - General Adult General Chief complaint: Back Pain/Injury Stated complaint: Right abdomen pain and states kidney pain Time Seen by Provider: 04/19/20 19:07 History of Present Illness HPI narrative: 35-year-old woman presents with 48 hours of dysuria frequency burning with 24 hours of right kidney pain. She also started her menstrual cycle yesterday and had severe enough cramps that she was unable to going to work. She has tried some Excedrin which was not all that helpful for the cramping. She denies fevers, cough, chills she does note diarrhea starting today, no abdominal pain no vomiting. No new sexual partners, no vaginal discharge. She notes that a number of years ago she had similar symptoms and at hospitalized with severe pyelonephritis with renal insufficiency. She states that about 3 weeks ago she had similar dysuria symptoms that lasted for 1-2 days and seem to resolve with pushing fluids. She has noted no new rashes or skin complaints but does show a tattoo on her right thigh that was started yesterday. Related Data Home Medications Medication Instructions Recorded Confirmed acetaminophen [Tylenol] 325 mg PO PRN PRN 08/07/18 04/24/19 ibuprofen 200 mg PO PRN PRN 08/07/18 04/24/19 aspirin 81 mg tablet,delayed 81 mg PO DAILY PRN 04/24/19 04/24/19 release Previous Rx's Medication Instructions Recorded cyclobenzaprine 10 mg tablet 10 mg PO TID PRN #14 tab 07/20/19 Allergies Allergy/AdvReac Type Severity Reaction Status Date / Time Penicillins Allergy Severe ANAPHYLAXIS Verified 07/31/19 10:46 /FAREED Review of Systems Review of Systems Narrative: Significant menometrorrhagia unable to take NSAIDs secondary to factor V Leiden deficiency. Finds that Tylenol is not effective in controlling her cramping Pertinent positive and negative findings as per HPI Remainder of review of systems is otherwise unremarkable for ENT: No sore throat, neck pain, ear pain CV: Chest pain, palpitations, dyspnea on exertion Neuro: Syncope, dizziness, tingling Endocrine: Fatigue, heat or cold intolerance, very dry skin Heme: Easy bruising or bleeding Patient History Medical History Chronic low back pain (Acute) Factor 5 Leiden mutation, heterozygous (Chronic) Pulmonary embolism (12/23/15) Pyelonephritis (Acute) Surgical History Status post D&C (Resolved) Status post tonsillectomy (Resolved) Status post tubal ligation (Resolved) Family History Brother Age: 26 Autism Mother Age: 67 Factor V Leiden Sister Age: 38 Factor V Leiden Social History Smoking Status: Current some day smoker Tobacco: How many years used: 14 second hand exposure: Yes alcohol intake: current (1-2 beers or glasses or wine daily and 2 mixed drinks every other weekend.) substance use type: does not use Smoking Status: Current some day smoker alcohol intake frequency: holidays/special occasions only Substance Use Type: does not use Exam Narrative Exam Narrative: General: Healthy appearing, in no acute distress. Able to give a complete and coherent history. Well-nourished well-developed HEENT: Moist mucous membranes, normal sclera with reactive pupils, Neck: No JVD, supple Respiratory: Lungs are clear to auscultation, no wheezing no rales no rhonchi. Full and symmetrical air movement Cardiac: Regular rate and rhythm no murmurs no bruits Abdomen: Soft nontender good bowel tones, mild right flank pain Skin: Warm and dry, no rashes. New tattoo right thigh with expected erythema and irritation around it. Neurologic: Grossly neurologically intact with no obvious asymmetries or abnormalities Extremities: No trauma, well perfused Psych: Cooperative, appropriate insight and affect Initial Vital Signs Initial Vital Signs: Vital Signs Temperature 98.1 F 04/19/20 19:09 Pulse Rate 79 04/19/20 19:09 Respiratory Rate 18 04/19/20 19:09 Blood Pressure 127/85 04/19/20 19:09 Pulse Oximetry 99 04/19/20 19:09 Course Orders Ordered: ED Orders 04/19/20 19:14 Urinalysis and Microscopic Stat Urine Culture Stat 04/19/20 19:32 Complete Blood Count AUTO DIFF Stat Comprehensive Metabolic Panel Stat 04/19/20 19:58 CT kidney ureter bladder (KUB) Stat Oxycodone/Acetaminophen (Percocet 5/325) 1 tab PO NOW ONE Stop: 04/19/20 21:05 Oxycodone/Acetaminophen (Endocet 5/325 Prepack) 1 bottle MISC SEEINSTR ONE Stop: 04/19/20 21:05 Discontinued Medications Ceftriaxone Sodium/Dextrose (Rocephin) 2 gm in 50 mls @ 100 mls/hr IV NOW ONE Stop: 04/19/20 19:51 Last Infusion: 04/19/20 20:30 Dose: 0 mls/hr Documented by: Admin: 04/19/20 19:45 Dose: 100 mls/hr Documented by: ZAIRE Sodium Chloride (Normal Saline 0.9%) 1,000 mls @ 1,000 mls/hr IV BOLUS ONE Stop: 04/19/20 20:21 Last Admin: 04/19/20 19:44 Dose: 1,000 mls/hr Documented by: ZAIRE Ketorolac Tromethamine (Toradol) 15 mg IV NOW ONE Stop: 04/19/20 19:23 Last Admin: 04/19/20 19:44 Dose: 15 mg Documented by: ZAIRE Vital Signs Vital signs: Vital Signs - 8 hr 04/19/20 19:09 04/19/20 19:29 04/19/20 19:30 Temperature 98.1 F Pulse Rate 79 102 H 64 Respiratory Rate 18 Blood Pressure 127/85 138/92 H Pulse Oximetry 99 96 98 04/19/20 19:31 04/19/20 20:00 04/19/20 20:30 Temperature Pulse Rate 66 66 64 Respiratory Rate Blood Pressure 130/89 134/88 Pulse Oximetry 98 98 100 04/19/20 21:00 04/19/20 21:01 04/19/20 21:02 Temperature 98.2 F Pulse Rate 70 66 Respiratory Rate Blood Pressure 148/97 H Pulse Oximetry 99 98 Medical Decision Making Medical Records Medical records reviewed: Yes I reviewed the patient's medical records. Lab Data Lab results reviewed: Yes I reviewed the patient's lab results. Result diagrams: 04/19/20 19:32 04/19/20 19:32 Labs: Lab Results 04/19/20 04/19/20 04/19/20 Range/Units 19:14 19:32 19:32 WBC 9.1 (4.5-11.0) X10^3/uL RBC 4.41 (4.0-5.2) X10^6/uL Hgb 13.7 (12.0-16.0) g/dL Hct 39.7 (36-46) % MCV 90.0 (80-100) fL MCH 31.0 (26-34) PG MCHC 34.5 (30-36) % RDW 13.1 (11.6-14.8) % Plt Count 226 (150-400) X10^3/uL Neut % (Auto) 51.0 (50-75) % Lymph % (Auto) 36.7 (25-40) % [place] % (Auto) 8.2 (3-14) % Eos % (Auto) 3.2 (2-4) % Baso % (Auto) 0.9 (0-2) % Neut # (Auto) 4600 (1062-5276) /uL Lymph # (Auto) 3300 (6008-8320) /uL [place] # (Auto) 700 (0-900) /uL Eos # (Auto) 300 (0-450) /uL Baso # (Auto) 100 (0-100) /uL Sodium 139 (137-145) mmol/L Potassium 3.8 (3.4-5.1) mmol/L Chloride 109 H (98-107) mmol/L Carbon Dioxide 23 (22-32) mmol/L BUN 11 (7-17) mg/dL Creatinine 0.70 (0.52-1.04) mg/dL Estimated GFR > 60.0 (>60) mL/min BUN/Creatinine Ratio 15.7 (6-22) Glucose 93 (70-100) mg/dL Calcium 8.9 (8.4-10.2) mg/dL Total Bilirubin 0.4 (0.2-1.3) mg/dL AST 28 (14-36) IU/L ALT 21 (<35) IU/L Alkaline Phosphatase 71 (38-126) U/L Total Protein 7.2 (6.3-8.2) g/dL Albumin 4.3 (3.5-5.0) g/dL Globulin 2.9 (1.7-4.1) g/dL Albumin/Globulin Ratio 1.5 (1.0-2.8) Urine Color Yellow Urine Appearance Clear Urine pH 5.0 (4.5-8.0) Ur Specific [place] >=1.030 H (1.000-1.035) Urine Protein Negative (Negative) Urine Glucose (UA) Negative (Negative) g/dL Urine Ketones Negative (NEGATIVE) Urine Occult Blood 3+ H (Negative) Urine Nitrate Negative (Negative) Urine Bilirubin Negative (NEGATIVE) Urine Urobilinogen 0.2 (0.2) E.U./dL Ur Leukocyte Esterase Negative (NEGATIVE) Urine RBC 5-10/hpf H (0-5/HPF) Urine WBC 1-5/hpf (0-5/HPF) Ur Squamous Epith Cells 1-5 /hpf (0-5/HPF) Amorphous Sediment 1+ Urine Bacteria Few (2-10) H (None) Urine Mucus 2+ H (Negative) Ur Culture Indicated? Culture not indicate Point of Care Testing Test Results Negative Urine Dip Bedside Urine Glucose Negative Bedside Urine Bilirubin - Negative Bedside Urine Ketone - Negative Urine Specific [place] 1.030 Bedside Urine Occult Blood +++ Bedside Urine pH 6.0 Bedside Urine Protein +/- 15 Bedside Urine Urobilinogen - Negative Bedside Urine Nitrite - Negative Bedside Urine Leukocytes - Negative Esterase Point of care testing: Point of Care Testing Test Results Negative Urine Dip Bedside Urine Glucose Negative Bedside Urine Bilirubin - Negative Bedside Urine Ketone - Negative Urine Specific [place] 1.030 Bedside Urine Occult Blood +++ Bedside Urine pH 6.0 Bedside Urine Protein +/- 15 Bedside Urine Urobilinogen - Negative Bedside Urine Nitrite - Negative Bedside Urine Leukocytes - Negative Esterase [facility] Narrative Medical decision making narrative: 35-year-old woman with dysuria yesterday flank pain today hematuria but also menstruating. She was convinced she had a UTI however white count is not elevated and urine is unremarkable. She also notes that she had such severe menstrual cramps yesterday that she was unable to go to work. I am wondering if perhaps she has a kidney stone and passed 1 3 weeks ago they gave her symptoms at that time and the severe menstrual cramps are in fact renal colic. CT KUB is ordered Results are unremarkable. Wondering if her back pain and dysuria are related to the severity of her menstrual cramps or other alternative musculoskeletal etiology. No evidence for UTI, pyelonephritis, intra-abdominal infection, renal stone. As she is unable to take nonsteroidals due to her Factor 5 Leiden deficiency will give her a prepack of Percocet to go home with. Recommendation is 1 extra-strength Tylenol of have Percocet every 6 hours for severe pain. She understands the risks of addiction and difficulties with constipation as well as recommendations to not work or drive while taking narcotics. She does have a follow-up appointment with SHELBY Mccall. She is safe for home discharge. Discharge Plan Departure Patient Disposition: Home Clinical Impression: Menometrorrhagia Low back pain Qualifiers: Chronicity: acute Back pain laterality: right Sciatica presence: without sciatica Qualified Code(s): M54.5 - Low back pain Instructions: DI for Dysmenorrhea Activity Restrictions/Additional Instructions: Thank you for coming in today. Your workup revealed no evidence for a bladder infection or a kidney infection. No kidney stones no masses tumors or other acute issues in your abdomen. There are other reasons for intermittent dysuria and Dr. Flores will be the perfect physician to help you sort through some of these. In the meantime, as you can not take nonsteroidals, I am going to suggest that you use 1 extra strength Tylenol with half of a Percocet every 6 hours for severe pain. I wish you the best Prescriptions: No Action cyclobenzaprine 10 mg tablet 10 mg PO TID PRN (Reason: muscle spasm) Qty: 14 RF: 0 aspirin [Adult Low Dose Aspirin] 81 mg tablet,delayed release (DR/EC) 81 mg PO DAILY PRNRF: 0 acetaminophen [Tylenol] 325 mg Tablet 325 mg PO PRN PRN (Reason: Pain, Mild) RF: 0 ibuprofen 200 mg Tablet 200 mg PO PRN PRN (Reason: Pain, Mild) RF: 0 Referrals: Christy Judd ARNP [Primary Care Provider] - Stand Alone Forms: Work Release Note
[2020-04-19 19:40] LABS: Add Manual Diff / Slide Review NO; Basophils Absolute Auto 100 /uL (0-100); Basophils Percent Auto 0.9 % (0-2); Eosinophils Absolute Auto 300 /uL (0-450); Eosinophils Percent Auto 3.2 % (2-4); Hematocrit 39.7 % (36-46); Hemoglobin 13.7 g/dL (12.0-16.0); Lymphocytes Absolute Auto 3300 /uL (1100-4500); Lymphocytes Percent Auto 36.7 % (25-40); Mean Corpuscular HGB Conc 34.5 % (30-36); Monocytes Absolute Auto 700 /uL (0-900); Monocytes Percent Auto 8.2 % (3-14); Neutrophils Absolute Auto 4600 /uL (1500-7000); Platelet Count 226 X10^3/uL (150-400); Red Blood Cell Count 4.41 X10^6/uL (4.0-5.2); Red Cell Distribution Width 13.1 % (11.6-14.8); White Blood Cell Count 9.1 X10^3/uL (4.5-11.0)
[2020-04-19] MEDS: SODIUM CHLORIDE 0.9% 1,000 ML 1000 ML IV (19:44)
[2020-04-19] MEDS: KETOROLAC 60 MG/2 ML VIAL 15 MG IV (19:44)
[2020-04-19] MEDS: CEFTRIAXONE 2 GM/50 ML FROZ.PIGGY IV (19:45)
[2020-04-19 19:49] LABS: Alanine Aminotransferase 21 IU/L (<35); Albumin 4.3 g/dL (3.5-5.0); Albumin Globulin Ratio 1.5 (1.0-2.8); Alkaline Phosphatase 71 U/L (38-126); Aspartate Aminotransferase 28 IU/L (14-36); BUN Creatinine Ratio 15.7 (6-22); Bilirubin Total 0.4 mg/dL (0.2-1.3); Blood Urea Nitrogen 11 mg/dL (7-17); Calcium 8.9 mg/dL (8.4-10.2); Carbon Dioxide 23 mmol/L (22-32); Chloride 109 mmol/L (98-107); Estimated Glomerular Filt Rate > 60.0 mL/min (>60); Globulin 2.9 g/dL (1.7-4.1); Glucose 93 mg/dL (70-100); HEMOLYSIS 19 (0-50); Potassium 3.8 mmol/L (3.4-5.1); Sodium 139 mmol/L (137-145); Total Protein 7.2 g/dL (6.3-8.2)
--- NOTE | 2020-04-19 19:58 | DI.CT.S_ITS ---
PROCEDURE: CT KIDNEY URETER BLADDER (KUB) INDICATIONS: Right flank pain, hematuria, no evidence UTI TECHNIQUE: Noncontrast 5 mm thick sections acquired from the diaphragms to the symphysis. 5 mm thick coronal and sagittal reformats were then performed. For radiation dose reduction, the following was used: automated exposure control, adjustment of mA and/or kV according to patient size. COMPARISON: [facility], CT, CT KIDNEY URETER BLADDER (KUB), 11/19/2018, 11:29. FINDINGS: Image quality: Excellent. Lung bases: Lung bases are clear. Heart size is normal. Urinary system: Both kidneys are normal in size. No kidney stones. No hydronephrosis or perinephric fat stranding. Both ureters appear non-dilated throughout their expected courses. Bladder wall thickness is normal; no calcified bladder stones. Other solid organs: Liver is normal in size. Gallbladder is contracted . Pancreas is normal in contours. Spleen is normal in size. No adrenal nodules. Peritoneum and bowel: Unenhanced bowel loops demonstrate normal wall thickness and caliber. The appendix is thin walled. No free fluid or air. Nodes and vessels: No retroperitoneal or mesenteric adenopathy by size criteria. Aorta and inferior vena cava are normal in caliber. Abdominal wall: No ventral hernias. Pelvis: No free pelvic fluid. No inguinal hernias or adenopathy. Bones: No suspicious bony lesions. No vertebral body compression fractures. IMPRESSION: 1. No nephrolithiasis, hydronephrosis, hydroureter, or ureterolithiasis. 2. No acute intra-abdominal findings. Normal appendix. Dictated by: Paige Tolliver M.D. on 04/19/2020 at 20:37 Approved by: Paige Tolliver M.D. on 04/19/2020 at 20:41
[2020-04-19 20:28] LABS: Appearance Urine UA CLEAR; Bilirubin Urine UA NEGATIVE (NEGATIVE); Color Urine UA YELLOW; Glucose Urine UA NEGATIVE (Negative); Ketones Urine UA NEGATIVE (NEGATIVE); Leukocyte Esterase Urine UA NEGATIVE (NEGATIVE); Nitrite Urine UA NEGATIVE (Negative); Occult Blood Urine UA 3+ (Negative); Protein Urine UA NEGATIVE (Negative); Specific Gravity Urine UA >=1.030 (1.000-1.035); Urobilinogen Urine UA 0.2 E.U./dL (0.2)
[2020-04-19 20:35] LABS: Amorphous Sediment Urine 1+; Bacteria Urine Few (2-10); Mucus Urine 2+ (Negative); RBC Urine 5-10/HPF (0-5/HPF); Squamous Epithelial Cell Urine 1-5 /HPF (0-5/HPF); WBC Urine 1-5/HPF (0-5/HPF)
[2020-04-19] MEDS: OXYCODONE/ACETAMINOPHEN 5/325 TABLET 1 TAB PO (21:13)
[2020-04-19] MEDS: OXYCODONE/APAP 5/325 PREPACK 1 BOTTLE MISC (21:13)
== END 2020-04-19 21:18 | disposition home or self-care (01) ==
PROVIDERS: Emergency Provider Emergency Medicine; Family Provider Nurse Practitioner Family; PCP Nurse Practitioner Family
DX: N92.1 Excessive and frequent menstruation with irregular cycle (principal); M54.5 Low back pain; D68.51 Activated protein C resistance
CPT/HCPCS: 36415; 74176; 80053; 81001; 81003; 81025; 85025; 87077; 87086; 87186; 96365; 96375; 99284; J0696; J1885

== ENCOUNTER → 2020-06-10 10:15 | Outpatient (CLI) | payer OTHER, MEDICAID, SELFPAY ==
[2020-06-10 11:34] LABS: Hematocrit 42.6 % (36-46); Hemoglobin 14.6 g/dL (12.0-16.0); Mean Corpuscular HGB Conc 34.3 % (30-36); Mean Corpuscular Volume 90.5 fL (80-100); Platelet Count 210 X10^3/uL (150-400); Red Blood Cell Count 4.71 X10^6/uL (4.0-5.2); Red Cell Distribution Width 12.8 % (11.6-14.8); White Blood Cell Count 9.8 X10^3/uL (4.5-11.0)
[2020-06-10 12:07] LABS: Blood Urea Nitrogen 13 mg/dL (7-17); Calcium 9.3 mg/dL (8.4-10.2); Carbon Dioxide 27 mmol/L (22-32); Chloride 106 mmol/L (98-107); Estimated Glomerular Filt Rate > 60.0 mL/min (>60); Glucose 65 mg/dL (70-100); Sodium 137 mmol/L (137-145)
[2020-06-10 12:16] LABS: HEMOLYSIS 52 (0-50)
[2020-06-10 12:17] LABS: Potassium 4.7 mmol/L (3.4-5.1)
== END ==
PROVIDERS: Family Provider Nurse Practitioner Family; PCP Nurse Practitioner Family; Referring Provider Nurse Practitioner Family; Visit Provider Nurse Practitioner Family
DX: Z00.00 Encounter for general adult medical examination without abnormal findings (principal); D68.51 Activated protein C resistance
CPT/HCPCS: 36415; 80048; 85027

== ENCOUNTER → 2020-06-13 08:37 | Outpatient (CLI) | payer OTHER, MEDICAID, SELFPAY ==
[2020-06-16 06:51] LABS: COVID19 Sendout Not Detected (Not Detect)
== END ==
PROVIDERS: Family Provider Nurse Practitioner Family; PCP Nurse Practitioner Family; Visit Provider Physician Assistant
DX: Z11.59 Encounter for screening for other viral diseases (principal)
CPT/HCPCS: 87635

== ENCOUNTER 2020-06-16 05:50 | Day surgery (SDC) | payer OTHER, MEDICAID, SELFPAY ==
[2020-06-13 08:37] VITALS: BMI 26.5
[2020-06-16] VITALS (15 sets, daily range): BP systolic 100–123; BP diastolic 58–82; PULSE 56–93; RESP 10–99; TEMP 36.3–37.1; O2SAT 14–100; BMI 26.5; BMI 26.6
--- NOTE | 2020-06-16 | PATH_ITS ---
[facility] Accession Number: [id number] . 01 Material submitted: . UTERUS/FALLOPIAN TUBES - UTERUS AND PORTIONS OF BILATERAL FALLOPIAN TUBES . 02 Diagnosis: Uterus and Portions of Bilateral Fallopian Tubes, Supracervical Hysterectomy and Bilateral Partial Salpingectomy: 1. Adenomyosis. 2. Proliferative endometrium, mildly disordered. 3. Paratubal cyst. 4. Endometrium, myometrium, and bilateral fallopian tubes with no evidence of neoplasia or atypical hyperplasia. [facility] 06/18/2020 1712 Local . 02 Electronically signed: . Cayla Hathaway MD, Pathologist NPI- [id number] . 01 Gross description: . Received in formalin, labeled uterus and bilateral fallopian tubes, and consists of a 77 gram fragmented and diffusely disrupted uterus measuring 9.0 x 8.5 x 4.5 cm in aggregate. The serosa is haywood-pink and smooth. The cervix is not identified. The endometrium is haywood-pink, focally hemorrhagic and measures 0.1 cm in diameter. The myometrium is haywood-pink and trabeculated, measuring 2.0 cm in thickness. There are two detached fallopian tubes measuring 2.0 cm in length by 0.5 cm in diameter and 3.2 cm in length by 0.5 cm in diameter. The serosa is pink-purple and smooth, and there is a 0.5 cm paratubal cyst. Sectioning reveals a haywood mucosa and a stellate lumen measuring 0.2 cm in diameter. No ovaries are identified. Student Assistance Counselor sections are submitted. . A1-A3: ambulatory services representative full-thickness sections of uterus. A4: smaller fallopian tube with paratubal cyst, bisected fimbria (entirely submitted). A5: larger fallopian tube, bisected fimbria (entirely submitted). (EA/cmc10 [id number]) /MRV 06/18/2020 1720 Local . 02 Pathologist provided ICD-10: N94.6 . 02 CPT . 938661 Performed at: 01 [facility] [address] [address], [place], [place] [id number] MD Reagan Tomlin MD Phone: [phone] Performed at: [address] [place] [id number] [place], [place] [id number] MD Cayla Hathaway MD Phone: [phone]
[2020-06-16] MEDS: LACTATED RINGERS 1,000 ML 100 ML IV ×3 (07:24→19:17)
--- NOTE | 2020-06-16 07:32 | PM.PREOP ---
Pre-operative Note COVID-19 COVID-19 status: Negative Result date/Date tested (Pos, Neg/Pending): 06/13/20 Interval Note History & Physical reviewed/Exam performed by Physician: Yes Changes to H&P: No H&P completed within 30 days and has changed as indicated here:: 06/10/20
[2020-06-16] MEDS: CEFAZOLIN 2 GM/100 ML FROZ.PIGGY IV (07:50)
[2020-06-16] MEDS: ACETAMINOPHEN IV 1,000 MG/100 ML VIAL 400 MG IV (08:10)
--- NOTE | 2020-06-16 08:24 | SUR.OPER ---
Lithotomy on padded OR bed. [place] Pad Positioner under torso. Head on pillow, arms padded and tucked at sides. Legs secured in padded yellow fins stirrups.
[2020-06-16] MEDS: ROPIVACAINE 0.2% PF 2 MG/ML 10ML AMP 20 ML INJ (08:44)
[2020-06-16] MEDS: BUPIVACAINE 0.5% W/ EPI (PF) 30 ML VIAL INJ (08:47)
--- NOTE | 2020-06-16 09:28 | P.OP_ITS ---
Operative Date/Time/Diagnoses Date of procedure: 06/16/20 Time of procedure: 09:28 Pre-op diagnosis: Severe dysmenorrhea Post-op diagnosis: same Procedure & Clinicians Procedure: Procedures Operation Date: 06/16/20 07:45 Actual Procedures Side Surgeon p Laparoscopic Supracervical Hysterectomy w/ bilateral partial salpingectomy Not Applicable Janae Flores MD Indications: Severe dysmenorrhea Surgeon: Janae Flores Safety Inspector: Lenin Bell Anesthesia Type: General Operative Notes Findings: Eight week size anteverted uterus Tubes status post ligation bilaterally Left para ovarian cysts Normal ovaries Normal liver and gallbladder Normal appendix Closure Type: primary Specimen(s): portion of left tube, portion of right tube and uterus Applied: catheter (To continuous drainage) Estimated blood loss (mL): 20 Blood products transfused: none Procedure in detail: The patient was taken to the operating room where she was placed in the dorsal supine position. After adequate general endotracheal anesthesia was achieved, she was placed in the dorsal lithotomy position, and prepped and draped in the usual sterile fashion. A timeout was performed. A bivalve speculum was placed into the vagina and the anterior lip of the cervix grasped with a single-tooth tenaculum. The cervical os was sequentially dilated until the ZUMI uterine manipulator could pass easily into the endometrial cavity. The single-tooth tenaculum was removed from the anterior lip of the cervix, and the bivalve speculum was removed from the vagina. Attention was then turned to the abdomen where 6 mL of half percent Marcaine with epinephrine were injected in the umbilical fold. A 5 mm incision was made. The Verhees needle was placed into the peritoneal cavity, and its placement confirmed by aspiration and drop test. The Verhees needle was removed. A 5 mm trocar was placed without difficulty. 2 other incisions were made midway between the pubic symphysis and umbilicus after 5 mL of half percent Marcaine with epinephrine were injected. These were 5 mm incisions. Two 5 mm trochars were placed under direct visualization. The right tube was grasped with an atraumatic grasper. Using the plasma kinetic with settings of 40 W the mesosalpinx was cauterized and cut all the way down to the cornua of the uterus. The cornua of the uterus was then grasped with an atraumatic grasper. The utero-ovarian ligaments were cauterized and cut. The round ligament and broad ligament were cauterized and cut with plasma kinetic. Hemostasis was achieved. The bladder flap was created using the plasma kinetic with cautery and cut alf across. The uterine arteries on the right side were extensively cauterized with plasma kinetic. All of this was repeated on the left side. The remainder of the bladder flap was created using the plasma kinetic, and the bladder taken down off the lower uterine segment and cervix. Using the Endoloop, the cervix was amputated from the uterus 2 cm above the uter osacral ligaments, after the ZUMI uterine manipulator was removed from the uterus. There was a small amount of bleeding noted from the posterior edge of the cervix, and this was cauterized for hemostasis. A sponge stick was placed into the vagina. 6 mL of half percent Marcaine with epinephrine were injected above the pubic symphysis. A 12 mm trocar was placed. An Endobag was placed through the suprapubic trocar and the uterus was placed into the Endobag. The trocar was removed. The edges of the bag were brought through the incision. The Mihai was placed into the endobag. The uterus was hand morcellated in approximately 10 pieces. The Endobag was removed from the peritoneal cavity with the Mihai. The pelvis was copiously irrigated with warm normal saline. No bleeding was noted. 20 cc of 0.2% ropivacaine were placed over the pedicles. The instruments were removed from the abdomen. The CO2 was allowed to escape. The suprapubic incision was closed on the fascia with 0 Vicryl. The subcutaneous layer was closed with 2 simple interrupted sutures with 3-0 vicryl. All of the incisions were closed with 4-0 Biosyn in a subcuticular fashion. Steri strips, 2 x 2's and Op sites were placed over the incisions. The moistened sponge stick was removed from the vagina. Sponge, lap, and instrument counts were correct x-2. The patient tolerated the procedure well, was taken to PACU in stable condition. Complications: none Post-operative Condition: stable Disposition: PACU Plan for aftercare: To Acute Care after recovery
[2020-06-16] MEDS: fentaNYL 100 MCG/2 ML INJ IV ×2 (09:38→09:49)
[2020-06-16] MEDS: OXYCODONE IR 5 MG TABLET PO (10:00)
--- NOTE | 2020-06-16 10:29 | SUR.PHASEI ---
Pt received to PACU at 0925. Report received from Dr Allen and aixa RN. Medicated for pain as noted. Pt transferred to 212 at 1020 with VSLori, pain 12/10. Bedside handoff completed with ASHLEY Bennett. Pt belongings with pt upon transfer.
[2020-06-16] MEDS: ONDANSETRON 4 MG/2 ML INJ IV ×2 (10:51→22:11)
[2020-06-16] MEDS: KETOROLAC 30 MG/ML VIAL IV (10:51)
[2020-06-16] MEDS: ACETAMINOPHEN 325 MG TABLET 650 MG PO ×2 (11:04→18:31)
--- NOTE | 2020-06-16 11:45 | PC.NURSE ---
Addendum entered by Sabrina Jeffrey R.N. 06/16/20 15:16: Spoke with Dr. Flores at 1425 via telephone. placed new orders. Upon reassessment of pt at 1500, pt states pain 8/10 to abd and pelvic area, states has itching around catheter site. Slightly nauseated. PRN IV Dilaudid fo rpain and reglan for nausea given at 1505. Addendum entered by Sabrina Jeffrey R.N. 06/16/20 14:16: fax sent to surgery at 1210 for request of change in pain medications. Need additional BTP medications. Called Dr. flores's office at 1408 and left message with ASHLEY Yancey for change in Oxycodone to pills instead of liquid. Also for break through pain medication besides Toradol that's is already and given with little effect. Toradol makes pt itch, request for possible Benadryl. Original Note: Day Shift- Report rec'd from ASHLEY Cesar in PACU at 1013. Pt arrived to unit room 212 at 1025 via bed. Oriented to call light, bed functions. States pain to abd 7/10 aching, sharp intermittent and cramping. Denies nausea. Pt states she has had Toradol in the past it just makes me itch. Toradol IV, Tylenol po , and IV zofran prn given at 1050. Pain decreased to 6/10 to abd, was able to converse and finish admission questions. Abd lap sites X4 dressings of gauze and tegaderm are CDI. ludin pad CDI. Urinary catheter in place draining clear straw colored urine. Pt states that she is no longer a 'confidential' patient, she states that was for just over 2 years ago when she was in the hospital having her now 2 year old child and the confidentiality was placed due to her landlord. RN Coordinator aware. Pt given water, juice, and crackers to start. 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
[2020-06-16] MEDS: OXYCODONE 5 MG/5 ML ORAL SOLUTION PO (13:51)
[2020-06-16] MEDS: HYDROMORPHONE 1 MG INJ IV ×2 (15:00→19:09)
[2020-06-16] MEDS: METOCLOPRAMIDE 10 MG/2 ML INJ IV (15:05)
--- NOTE | 2020-06-16 19:36 | PC.NURSE ---
Addendum entered by Janae Abernathy R.N. 06/16/20 22:34: Relatively uneventful evening. Med for nausea once w/ fair relief. IVF continue as per orders. Hobson cath patent clear yellow urine. Call light w/in reach. Pt calls appropriately for needs Continue w/plan of care. Original Note: Pt ambulated in hallway w/staff w/o incidence. Lungs clear, SpO2 98% Abdomen soft, tender w/4 sites that are CDI. IVF infusing as per orders via pump w/o incidence. Hobson cath patent clear yellow urine. Call light w/in reach, pt calls appropriately for needs.
[2020-06-16] MEDS: DOCUSATE 250 MG CAPSULE PO (20:37)
[2020-06-17 00:12] VITALS: BP 96/47; PULSE 90; RESP 18; TEMP 36.8; O2SAT 95
[2020-06-17] MEDS: ACETAMINOPHEN 325 MG TABLET 650 MG PO ×3 (00:22→11:26)
[2020-06-17] MEDS: HYDROMORPHONE 1 MG INJ IV ×2 (00:27→04:46)
[2020-06-17] MEDS: METOCLOPRAMIDE 10 MG/2 ML INJ IV (00:59)
[2020-06-17] MEDS: ONDANSETRON 4 MG/2 ML INJ IV (04:47)
[2020-06-17] MEDS: LACTATED RINGERS 1,000 ML 100 ML IV (04:59)
[2020-06-17 05:16] VITALS: BP 104/62; PULSE 78; RESP 18; TEMP 36.6; O2SAT 94
[2020-06-17 05:39] LABS: Add Manual Diff / Slide Review NO; Basophils Absolute Auto 0 /uL (0-100); Basophils Percent Auto 0.3 % (0-2); Eosinophils Absolute Auto 100 /uL (0-450); Eosinophils Percent Auto 0.6 % (2-4); Hematocrit 35.9 % (36-46); Lymphocytes Absolute Auto 2600 /uL (1100-4500); Lymphocytes Percent Auto 19.2 % (25-40); Mean Corpuscular HGB Conc 33.6 % (30-36); Mean Corpuscular Hemoglobin 30.7 PG (26-34); Mean Corpuscular Volume 91.3 fL (80-100); Monocytes Absolute Auto 800 /uL (0-900); Monocytes Percent Auto 5.6 % (3-14); Neutrophils Absolute Auto 10000 /uL (1500-7000); Neutrophils Percent Auto 74.3 % (50-75); Platelet Count 150 X10^3/uL (150-400); Red Blood Cell Count 3.93 X10^6/uL (4.0-5.2); Red Cell Distribution Width 13.1 % (11.6-14.8); White Blood Cell Count 13.5 X10^3/uL (4.5-11.0)
[2020-06-17 08:00] VITALS: BP 95/52; PULSE 64; RESP 16; TEMP 36.8; O2SAT 93
[2020-06-17] MEDS: DOCUSATE 250 MG CAPSULE PO (08:09)
[2020-06-17] MEDS: ENOXAPARIN 30 MG/0.3 ML SYRINGE SUBCUT (08:10)
[2020-06-17] MEDS: OXYCODONE IR 5 MG TABLET PO ×3 (08:12→13:53)
--- NOTE | 2020-06-17 10:36 | PC.NURSE ---
Addendum entered by Sabrina Jeffrey R.N. 06/17/20 15:53: On hold X2 with Dr. Flores office attempting to make follow up appointment for pt. Faxed request to make appointment for pt and call pt with information sent at 1555. Called pt on her cell and also made aware of fax request for appointment and to follow up. Addendum entered by Sabrina Jeffrey R.N. 06/17/20 14:25: Pt left unit at 1425 via wheelchair in no distress with ASSISTANT COMMUNITY DIRECTOR escort. Addendum entered by Sabrina Jeffrey R.N. 06/17/20 14:06: Discharge summary packet reviewed with pt. No further voiced concerns. Explained dressing removal after shower and S/S of infection. Pt states she has all her belongings upon discharge. Addendum entered by Sabrina Jeffrey R.N. 06/17/20 12:55: This morning with 0810 administration of Lovenox injection. Pt was able to perform injection herself with this RN's supervision. Pt stated she has given herself injections of Lovenox in the past. Instructions on Lovenox added to discharge paperwork. Addendum entered by Sabrina Jeffrey R.N. 06/17/20 12:12: Called to Dr. Flores's office at 1210 and left message with nurse to request discharge home orders with instructions and prescriptions. Original Note: Day Shift- Pt OOB to chair this AM for breakfast. Urinary catheter had been previously removed at 0625 per night RN Xena. Pt reports 6.5/10 aching to abd and pelvic area. pain management plan discussed and po prn Oxycodone 5mg given at 0810. Abd lap sites X4 have intact gauze and tegaderm dressings. The umbilicus dressing has small amount of bloody shadowing on gauze. Pt states feeling slightly less bloated than yesterday to her abd. Denies nausea, tolerated breakfast. Pt's first void was unmeasured and her second void was approx 200mls. Awaiting D/C orders and prescriptions. Pt aware.
[2020-06-17 11:57] VITALS: BP 118/74; PULSE 75; RESP 18; TEMP 36.9; O2SAT 98
--- NOTE | 2020-06-17 14:26 | CM.DANOTE ---
Discharge Planning/Care Management DCP: assessment: case received, EMR reviewed. Discussed in Team Rounds. RN Coordinator noted pt was doing well and would likely d/c home today. Pt is a 35 year old female who admitted yesterday for a scheduled gynecological surgery. Surgeon: Dr. Flores. PCP: Christy Judd Payer: Lawrence Gonsales and NOHEMI TEMPLETON are both listed. A check in now shows that pt was given ok for d/c home today by Dr. Flores and she has already left for home after going over all d/c instructions with ASHLEY Bennett. No d/c concerns were noted by the care team members. CM Discharge Assessment Start: 06/17/20 14:24 Freq: Status: Active Protocol: Document 06/17/20 14:24 ITV (Rec: 06/17/20 14:25 ITV [id number]) Discharge Planning Assessment Advance Directives? No Advance Directives on File No History Provided By Medical Record Prior Living Arrangements Mobile home Household Members none Review Status In Process Pre-Anesthesia Assessment Start: 06/13/20 08:37 Freq: Status: Complete Protocol: Document 06/13/20 08:37 CAB (Rec: 06/13/20 08:47 CAB [id number]) Pre-Anesthesia Assessment Patient Information Reviewed Via Chart Review Diagnostic Results BMP/CMP,CBC Comment Labs @ 06/10/20, COVID screen @ 06/13/20 Primary Care Provider Christy Judd Specialist Seen Emergency,Communications Superintendent Primary Language Angolan Pack Room Operator Required No Height 160.02 cm Weight 68.039 kg Body Mass Index (BMI) 26.5 Barriers to Learning None Hx Anesthesia Reactions Factor 5 Leiden mutation, heterozygous alcohol intake current alcohol intake frequency 0-2 drinks per day Smoking Status Current some day smoker Substance Use Type does not use Pain Present Pain Reported History of Falling (Recent or History of No ) Patient is completely paralyzed or No completely immobile Mental Status Oriented to own ability Is patient on oxygen? No Does patient have RAPP/SOB No Hx Sleep Apnea No Currently Taking a Beta [place] No Hx Chest Pain No Hx SOB No Hx Syncope or Dizziness No Anti-Coagulant Therapy No Has a Space Engineer No Cardiac Testing No Hx Pacemaker/ICD No Pacemaker Rep Required? No Cardiac Clearance Received Not Applicable Genitourinary Symptoms Pelvic Pain Urinary Catheter Present No Hx Urinary Self Catheterization No Diabetes No Patient No Lactating No Comment LMP 06/10/20 Have you had any close contact with Unknown someone diagnosed with COVID-19? Marital Status Single Patient Discharge Plan Description Return Home Advance Directives? No
--- NOTE | 2020-06-18 06:51 | PM.DS.1 ---
History of Present Illness History of Present Illness Date Patient Seen: 06/17/20 Time Patient Seen: 07:40 Chief complaint: OPB Narrative: Patient is a 35-year-old postop day # 1 status post laparoscopic supracervical hysterectomy with bilateral salpingectomy Discharge Providers Provider Discharge Date: 06/17/20 Primary care physician: ISIAH Villanueva Discharge provider: Janae Flores MD Summary Hospital Course Discharge Diagnosis: Severe dysmenorrhea Status post laparoscopic supracervical hysterectomy with bilateral salpingectomy Leiden Factor V Hospital Course: Patient is a 35-year-old who was admitted on June 16, 2020 for a scheduled laparoscopic supracervical hysterectomy with bilateral salpingectomy. She underwent this procedure without complication. On postop day # 1 her catheter was removed at 6:00 a.m.. She was able to void without the catheter. She is tolerating a diet. She is passing flatus. She is ambulating without assistance. Her pain is well controlled with oral medications. Patient is discharged to home Status at Discharge Cognitive/behavioral status at discharge: oriented Functional status at discharge: independent ambulation Overall status at discharge: patient is progressing back to baseline Time Spent with Patient Time spent: Less than 30 minutes Exam Vital Signs (past 8 hours): Oxygen Delivery Method Room Air Oxygen Flow Rate 0 Narrative Exam Narrative: Generally: Patient is sitting up in bed side chair, no acute distress Lungs: Clear to auscultation bilaterally Cardiovascular: Regular rate and rhythm Abdomen: Soft and flat Incisions: Clean dry and intact with op sites Extremities: Negative Homans, no edema Objective Labs Result Diagrams: 06/17/20 05:10 Discharge Assessment & Plan Assessment and Plan Assessment: Postop day # 1 status post laparoscopic supracervical hysterectomy with bilateral salpingectomy due to severe dysmenorrhea, doing very well Leiden Factor V Plan of Treatment: Discharge to home Follow-up in 2 week Lovenox 30 mg subcu daily Prescriptions for ibuprofen, Lovenox, and Percocet sent to [facility] Patient is to call with fever, chills, redness or drainage around the incisions, or bleeding vaginally more than spotting to light Discharge Plan Discharge Plan Patient Disposition: Home Discharge Med Rec/Prescriptions Prescriptions: New oxycodone-acetaminophen [Percocet] 5-325 mg tablet 1 tab PO Q4-6H PRN (Reason: pain) Qty: 30 RF: 0 ibuprofen 600 mg tablet 600 mg PO Q6H PRN (Reason: pain) Qty: 20 RF: 0 enoxaparin [Lovenox] 30 mg/0.3 mL syringe 30 mg SUBCUT DAILY Qty: 3 RF: 3 Continued Keto BHB capsule 2 tab PO DAILY RF: 0 acetaminophen [Tylenol] 325 mg Tablet 325 mg PO PRN PRN (Reason: Pain, Mild) RF: 0 Follow up/Referrals: Janae Flores MD [Physician] - 2 Weeks () Discharge Orders: Discharge (Order); Ordered 06/17/20 Ordered By: Janae Flores Provider Discharge Instructions Diet: Regular Activity: No intercourse Skin/Wound/Dressing Care Report to your healthcare provider any signs of infection, such as:: chills, fever, increased pain, unusual drainage and unusual redness Dressing: Remove outer plastic dressings and guaze after first shower Visit Report/Discharge Packet Instructions: How to Prevent Falls, DI for Postoperative Pain, Hysterectomy -- Laparoscopic Surgery, DI for Prescription Opioid Use, Enoxaparin Injection, Oxycodone/Acetaminophen (By mouth) Stand Alone Forms: Surgery Discharge Discharge Data Primary Care Provider: Christy Judd Attending Provider: Janae Flores Discharges patient from system. Discharge Date/Time: 06/17/20 14:25 Quality VTE Deep Vein Thrombosis/Pulmonary Embolism Present on Admission: No
--- NOTE | 2020-06-18 06:52 | P.PN_ITS ---
Subjective Subjective Date Patient Seen: 06/17/20 Time Patient Seen: 07:40 Interval history: Patient is a 35-year-old postop day # 1 status post laparoscopic supracervical hysterectomy with bilateral salpingectomy due to severe dysmenorrhea. Her catheter came out this morning and she has been able to void. She is tolerating a diet. Pain is well controlled. She is ambulating without assistance. Exam Vital Signs (past 8 hours): Oxygen Delivery Method Room Air Oxygen Flow Rate 0 Narrative Exam Narrative: Generally: Patient is sitting up in bed side chair, no acute distress Lungs: Clear to auscultation bilaterally Cardiovascular: Regular rate and rhythm Abdomen: Soft and flat. Incisions: Clean dry and intact with op sites Extremities: Negative Homans Objective Labs Result Diagrams: 06/17/20 05:10 Assessment & Plan Post-op Postoperative Procedures: Procedures Operation Date: 06/16/20 07:45 Actual Procedures Side Surgeon p Laparoscopic Supracervical Hysterectomy w/ bilateral partial salpingectomy Not Applicable Janae Flores MD Postoperative day: 1 Postoperative status: doing well Postoperative plan: discharge Postoperative plan narrative: Discharge to home Follow-up in 2 weeks Prescriptions for Percocet, ibuprofen, and Lovenox sent in to [facility] Patient is to call with fever, chills, bleeding vaginally more than spotting to light, or redness or drainage around the incisions Quality VTE Deep Vein Thrombosis/Pulmonary Embolism Present on Admission: No
== END 2020-06-17 14:25 | disposition home or self-care (01) ==
LOC: OR 05:56 → AC 06:02
PROVIDERS: Family Provider Nurse Practitioner Family; PCP Nurse Practitioner Family; Referring Provider Nurse Practitioner Family; Visit Provider Obstetrics & Gynecology
PROC: 0UT94ZL Resection of Uterus, Supracervical, Percutaneous Endoscopic Approach (ICD-10-PCS; CPT 58542; principal; 2020-06-16 07:45)
DX: N80.0 Endometriosis of uterus (principal); F17.210 Nicotine dependence, cigarettes, uncomplicated; D68.51 Activated protein C resistance; N83.8 Other noninflammatory disorders of ovary, fallopian tube and broad ligament
CPT/HCPCS: 58542; 36415; 85025; J0131; J0690; J1100; J1170; J1650; J1885; J2250; J2405; J2704; J2765; J2795; J3010

== ENCOUNTER 2020-07-16 22:32 | Emergency (ER) | payer OTHER, MEDICAID, SELFPAY ==
[2020-06-16 11:14] VITALS: BMI 26.6
[2020-07-16 22:38] VITALS: BP 142/91; PULSE 77; RESP 20; TEMP 36.6; O2SAT 99
--- NOTE | 2020-07-16 22:39 | DI.RAD.S_ITS ---
PROCEDURE: XR FINGER LT MIN 2V INDICATIONS: distal 3rd digit pain no known injury TECHNIQUE: AP hand, 2 views of the left finger(s) acquired. COMPARISON: None. FINDINGS: Bones: No fractures or dislocations. No suspicious bony lesions. Soft tissues: No suspicious soft tissue calcifications. IMPRESSION: Negative examination as above. If the patient's pain or other symptoms persist, consider further evaluation with MRI Dictated by: Willis Curran M.D. on 07/17/2020 at 8:20 Approved by: Willis Curran M.D. on 07/17/2020 at 8:22
--- NOTE | 2020-07-16 22:53 | ED_ITS ---
HPI - General Adult General Chief complaint: Extremity Injury, Upper Stated complaint: lt middle finger sore for a month Time Seen by Provider: 07/16/20 22:48 Source: patient Mode of arrival: Ambulatory Limitations: no limitations History of Present Illness HPI narrative: 35-year-old female here for evaluation of left middle finger pain specifically over the D IP joint. She states it has had some sharp pain occas ionally in that finger over the past month. Has not tried anything for the symptoms. She states she was in the local area so she decided to come to the emergency department for evaluation. Up to this point she has yet to have it evaluated. No trauma. Related Data Home Medications Medication Instructions Recorded Confirmed acetaminophen [Tylenol] 325 mg PO PRN PRN 08/07/18 06/16/20 Keto BHB 2 tab PO DAILY 06/10/20 Previous Rx's Medication Instructions Recorded enoxaparin [Lovenox] 30 mg SUBCUT DAILY #3 ml 06/17/20 ibuprofen 600 mg tablet 600 mg PO Q6H PRN #30 tab 06/27/20 metronidazole 0.75 % vaginal gel 1 appful VAG DAILY 7 Days #70 gram 07/14/20 Allergies Allergy/AdvReac Type Severity Reaction Status Date / Time Penicillins Allergy Severe ANAPHYLAXIS Verified 06/27/20 08:29 /HIVES morphine AdvReac Unknown itching, Verified 06/27/20 08:29 doesn't work NSAIDS (Non-Steroidal AdvReac Factor 5 Verified 06/27/20 08:29 Anti-Inflamma Leiden mutation Review of Systems Constitutional Constitutional: Denies fever(s) Musculoskeletal Comments: Left finger pain Integumentary/Breasts Skin/Breast: Denies lesions and Denies rash Neurologic Neurologic: Denies behavioral changes Psychiatric Psychiatric: Denies behavioral changes Hematologic/Lymphatic Hematologic/Lymphatic: Denies easy bleeding and Denies easy bruising Patient History Medical History Chronic low back pain (Acute) Chronic pelvic pain in female (Acute) Factor 5 Leiden mutation, heterozygous (Chronic) Pulmonary embolism (12/23/15) Pyelonephritis (Acute) Routine Papanicolaou smear (Acute) Surgical History Status post D&C (Resolved) Status post tonsillectomy (Resolved) Status post tubal ligation (Resolved) Family History Brother Age: 26 Autism Mother Age: 67 Factor V Leiden Sister Age: 38 Factor V Leiden Social History household members: none Smoking Status: Former smoker Tobacco: How many years used: 14 second hand exposure: Yes alcohol intake: current substance use type: does not use Smoking Status: Former smoker alcohol intake frequency: 0-2 drinks per day Substance Use Type: former substance user and marijuana Exam Initial Vital Signs Initial Vital Signs: Vital Signs Temperature 97.9 F 07/16/20 22:38 Pulse Rate 77 07/16/20 22:38 Respiratory Rate 20 07/16/20 22:38 Blood Pressure 142/91 H 07/16/20 22:38 Pulse Oximetry 99 07/16/20 22:38 Const General: cooperative and comfortable Limitations: mental status not altered HENMT Head: normal to inspection and normocephalic Cardio Pulses: radial pulses present on the left Skin Lesions: no lesions Rashes: no rashes Neuro Sensory Exam: no sensory deficits noted Extrem Other: MCP and PIP joint left middle finger unremarkable. D IP joint also unremarkable. Patient able to flex and extend both active and passive and against resistance without reproduction of symptoms. Psych Appearance: grossly normal and well kempt Course Orders Ordered: ED Orders 07/16/20 22:39 XR finger LT min 2V Stat Vital Signs Vital signs: Vital Signs - 8 hr 07/16/20 22:38 Temperature 97.9 F Pulse Rate 77 Respiratory Rate 20 Blood Pressure 142/91 H Pulse Oximetry 99 Medical Decision Making Imaging Data Extremity x-ray #1: Radiologist's Impression: No fractures or dislocations MDM Narrative Medical decision making narrative: Patient has had symptoms over the area off and on for the past month. Her x-ray has no acute pathology. There is also no sign of infection. No further workup needed in the emergency department. Discussed conservative treatment the patient. She was given return precautions. She expressed understanding and agreement Discharge Plan Departure Patient Disposition: Home Clinical Impression: Finger pain, left Discharge Date/Time: 07/16/20 23:07 Instructions: How To Perform RICE (Rest, Ice, Compress, Elevate) Activity Restrictions/Additional Instructions: There were no fractures noted on the x-rays. Recommend that if your symptoms worsened you take Tylenol and/or ibuprofen. Return to the emergency department for any new symptoms Prescriptions: No Action metronidazole [Metrogel Vaginal] 0.75 % gel 1 appful VAG DAILY 7 Days Qty: 70 RF: 0 Keto BHB capsule 2 tab PO DAILY RF: 0 ibuprofen 600 mg tablet 600 mg PO Q6H PRN (Reason: pain) Qty: 30 RF: 3 enoxaparin [Lovenox] 30 mg/0.3 mL syringe 30 mg SUBCUT DAILY Qty: 3 RF: 3 acetaminophen [Tylenol] 325 mg Tablet 325 mg PO PRN PRN (Reason: Pain, Mild) RF: 0 Referrals: Christy Judd ARNP [Primary Care Provider] -
== END 2020-07-16 23:07 | disposition home or self-care (01) ==
PROVIDERS: Emergency Provider Emergency Medicine; Family Provider Nurse Practitioner Family; PCP Nurse Practitioner Family
DX: M79.645 Pain in left finger(s) (principal)
CPT/HCPCS: 73140; 99281; 99283

== ENCOUNTER 2020-09-28 18:47 | Emergency (ER) | payer OTHER, MEDICAID, SELFPAY ==
[2020-06-16 11:14] VITALS: BMI 26.6
[2020-09-28] VITALS (7 sets, daily range): BP systolic 126–148; BP diastolic 65–94; PULSE 84–102; RESP 11–32; TEMP 36.9; O2SAT 97–100; BMI 25.7
--- NOTE | 2020-09-28 19:14 | ED.ABDPAIN ---
HPI - Abdominal Pain General Chief Complaint: Abdominal Pain Stated Complaint: Sharp Pain, Right Side, Under Rib Cage Time Seen by Provider: 09/28/20 19:09 Source: patient Mode of arrival: Ambulatory Limitations: no limitations History of Present Illness HPI narrative: 35-year-old woman with a history factor 5 Leiden deficiency, prior pulmonary embolism currently not anticoagulated, 3 months post vaginal hysterectomy, presents with right upper quadrant pain possibly right flank pain that has been intermittent present for at least the last 3 or 4 days. She describes it as a brief sharp stabbing pain in the right upper quadrant that resolved spontaneously. She has not noticed behaviors that seem to make it better or worse, it is not positional. She does not associated with eating or not eating. Today she had an episode that was more severe and lasted a few more minutes than previously. In the last 4-5 days she has made some changes in her diet including decreasing potatoes, pasta and bread and has noticed an approximate 5 lb weight loss. She describes no fevers or chills, no constipation, no dysuria, cough, wheezing, headache, no rashes and no asymmetric lower extremity edema or calf pain.. Related Data Home Medications Medication Instructions Recorded Confirmed acetaminophen [Tylenol] 325 mg PO PRN PRN 08/07/18 08/13/20 Keto BHB 2 tab PO DAILY 06/10/20 08/13/20 Previous Rx's Medication Instructions Recorded ibuprofen 600 mg tablet 600 mg PO Q6H PRN #30 tab 06/27/20 triamcinolone acetonide 0.1 % 1 applictn TOP DAILY #30 gram 08/13/20 topical cream Allergies Allergy/AdvReac Type Severity Reaction Status Date / Time Penicillins Allergy Severe ANAPHYLAXIS Verified 08/13/20 09:21 /HIVES morphine AdvReac Unknown itching, Verified 08/13/20 09:21 doesn't work NSAIDS (Non-Steroidal AdvReac Factor 5 Verified 08/13/20 09:21 Anti-Inflamma Leiden mutation Patient History Medical History Chronic low back pain Chronic pelvic pain in female Dermatitis Factor 5 Leiden mutation, heterozygous Pulmonary embolism (12/23/15) Pyelonephritis Routine Papanicolaou smear Surgical History History of vaginal hysterectomy Status post D&C Status post tonsillectomy Status post tubal ligation Family History Brother Age: 26 Autism Mother Age: 67 Factor V Leiden Sister Age: 38 Factor V Leiden Social History household members: none Smoking Status: Former smoker Tobacco: How many years used: 14 second hand exposure: Yes alcohol intake: current substance use type: does not use Smoking Status: Former smoker alcohol intake frequency: 0-2 drinks per day Substance Use Type: former substance user and marijuana Exam Narrative Exam Narrative: General: Healthy appearing, in no acute distress. Able to give a complete and coherent history. Well-nourished well-developed HEENT: Moist mucous membranes, normal sclera with reactive pupils, Neck: No JVD, supple Respiratory: Lungs are clear to auscultation, no wheezing no rales no rhonchi. Full and symmetrical air movement Cardiac: Regular rate and rhythm no murmurs no bruits Abdomen: Soft, mild tenderness in the right upper quadrant without rebound or guarding, good bowel tones, no flank pain Skin: Warm and dry, no rashes Neurologic: Grossly neurologically intact with no obvious asymmetries or abnormalities Extremities: No trauma, well perfused Psych: Cooperative, appropriate insight and affect Initial Vital Signs Initial Vital Signs: Vital Signs Temperature 98.5 F 09/28/20 18:55 Pulse Rate 102 H 09/28/20 18:55 Respiratory Rate 18 09/28/20 18:55 Blood Pressure 148/65 H 09/28/20 18:55 Pulse Oximetry 100 09/28/20 18:55 Course Orders Ordered: ED Orders 09/28/20 19:04 Urine Microscopic Stat 09/28/20 19:10 Complete Blood Count AUTO DIFF Stat Comprehensive Metabolic Panel Stat Lipase Stat 09/28/20 19:19 US abdomen limited Stat Vital Signs Vital signs: Vital Signs - 8 hr 09/28/20 18:55 09/28/20 19:16 09/28/20 19:20 Temperature 98.5 F Pulse Rate 102 H 99 H 96 H Respiratory Rate 18 14 11 L Blood Pressure 148/65 H 136/94 H Pulse Oximetry 100 98 98 09/28/20 19:30 09/28/20 20:00 09/28/20 20:30 Temperature Pulse Rate 97 H 93 H 93 H Respiratory Rate 32 H Blood Pressure Pulse Oximetry 97 98 98 MDM - Abdominal Pain Medical Records Attestation: I reviewed the patient's medical records. Lab Data Attestation: I reviewed the patient's lab results. Result diagrams: 09/28/20 19:10 09/28/20 19:10 Labs: Lab Results 09/28/20 09/28/20 09/28/20 Range/Units 19:04 19:10 19:10 WBC 10.4 (4.5-11.0) X10^3/uL RBC 4.86 (4.0-5.2) X10^6/uL Hgb 15.1 (12.0-16.0) g/dL Hct 43.4 (36-46) % MCV 89.1 (80-100) fL MCH 31.1 (26-34) PG MCHC 34.9 (30-36) % RDW 12.6 (11.6-14.8) % Plt Count 190 (150-400) X10^3/uL Neut % (Auto) 59.9 (50-75) % Lymph % (Auto) 31.0 (25-40) % [place] % (Auto) 7.0 (3-14) % Eos % (Auto) 1.5 L (2-4) % Baso % (Auto) 0.6 (0-2) % Neut # (Auto) 6300 (0424-9689) /uL Lymph # (Auto) 3200 (9224-7555) /uL [place] # (Auto) 700 (0-900) /uL Eos # (Auto) 200 (0-450) /uL Baso # (Auto) 100 (0-100) /uL Sodium 141 (137-145) mmol/L Potassium 3.4 (3.4-5.1) mmol/L Chloride 108 H (98-107) mmol/L Carbon Dioxide 26 (22-32) mmol/L BUN 15 (7-17) mg/dL Creatinine 0.55 (0.52-1.04) mg/dL Estimated GFR > 60.0 (>60) mL/min BUN/Creatinine Ratio 27.3 H (6-22) Glucose 93 (70-100) mg/dL Calcium 9.7 (8.4-10.2) mg/dL Total Bilirubin 0.3 (0.2-1.3) mg/dL AST 27 (14-36) IU/L ALT 18 (<35) IU/L Alkaline Phosphatase 63 (38-126) U/L Total Protein 8.0 (6.3-8.2) g/dL Albumin 4.7 (3.5-5.0) g/dL Globulin 3.3 (1.7-4.1) g/dL Albumin/Globulin Ratio 1.4 (1.0-2.8) Lipase 277 (23-300) U/L Urine RBC 5-10/hpf H (0-5/HPF) Urine WBC 0-1/hpf (0-5/HPF) Ur Squamous Epith Cells 5-10 /hpf H (0-5/HPF) Urine Bacteria Few (2-10) H (None) Ur Culture Indicated? Cult not indicated Point of care testing: Urine Dip Bedside Urine Glucose Negative Bedside Urine Bilirubin - Negative Bedside Urine Ketone + 15 Urine Specific [place] 1.030 Bedside Urine Occult Blood +++ Bedside Urine pH 5.5 Bedside Urine Protein - Negative Bedside Urine Urobilinogen - Negative Bedside Urine Nitrite - Negative Bedside Urine Leukocytes - Negative Esterase Imaging Data US - abdomen: Radiologist's Impression: Unremarkable ultrasound of the right upper quadrant of the abdomen Clyde Serrano MD ECG Data Attestation: I personally reviewed and interpreted this ECG as follows: Interpretation: Sinus rhythm at a rate of 93 Normal intervals, normal axis No acute ST T wave changes MDM Narrative Medical decision making narrative: 35-year-old woman with transient right upper quadrant pain. Negative workup no evidence of acute cholecystitis or cholelithiasis. No renal abnormalities. Most likely explanation at this point is musculoskeletal pain. Reviewed findings with her she is safe for home discharge. Discharge Plan Departure Patient Disposition: Home Clinical Impression: Abdominal pain Qualifiers: Abdominal location: right upper quadrant Qualified Code(s): R10.11 - Right upper quadrant pain Instructions: DI for Abdominal Pain-Adult Activity Restrictions/Additional Instructions: Thank you for coming in today Your workup was very reassuring. I see no signs of infection, you do not have gallstones and your right kidney looks normal on ultrasound. I suspect that the fleeting right upper quadrant pains that you are experiencing are musculoskeletal in nature. However, if things do get worse, you develop fevers, vomiting or pain that does not go away, it would be appropriate to return to the emergency department I hope you feel better Prescriptions: No Action triamcinolone acetonide 0.1 % cream 1 applictn TOP DAILY Qty: 30 RF: 0 Keto BHB capsule 2 tab PO DAILY RF: 0 ibuprofen 600 mg tablet 600 mg PO Q6H PRN (Reason: pain) Qty: 30 RF: 3 acetaminophen [Tylenol] 325 mg Tablet 325 mg PO PRN PRN (Reason: Pain, Mild) RF: 0 Referrals: Christy Judd ARNP [Primary Care Provider] -
--- NOTE | 2020-09-28 19:19 | DI.US.S_ITS ---
PROCEDURE: US ABDOMEN LIMITED INDICATIONS: RUQ/R flank pain TECHNIQUE: Real-time scanning was performed of the abdominal and retroperitoneal organs, with image documentation. COMPARISON: None. FINDINGS: Liver: Liver is normal in size and homogeneous in echotexture. Gallbladder: Gallbladder is normal in sonographic appearance without gallstones, gallbladder wall thickening, pericholecystic fluid, or abnormal sonographic Valenzuela's. Biliary ducts: Intrahepatic bile ducts are non-dilated. Extrahepatic bile duct caliber measures 3 mm. Normal is 6-7 mm or less in diameter, or 10 mm or less post-cholecystectomy. Pancreas: Visualized portions of the pancreas are sonographically normal. Kidneys: Right kidney is normal in size and echotexture. Right kidney measures 10.9 cm long. No hydronephrosis or nephrolithiasis. No solid masses. IMPRESSION: Normal sonographic evaluation of the liver, gallbladder, pancreas and right kidney. Dictated by: Ben Howard M.D. on 09/28/2020 at 20:55 Approved by: Ben Howard M.D. on 09/28/2020 at 20:58
[2020-09-28 19:28] LABS: Add Manual Diff / Slide Review NO; Basophils Absolute Auto 100 /uL (0-100); Basophils Percent Auto 0.6 % (0-2); Eosinophils Absolute Auto 200 /uL (0-450); Eosinophils Percent Auto 1.5 % (2-4); Hematocrit 43.4 % (36-46); Hemoglobin 15.1 g/dL (12.0-16.0); Lymphocytes Absolute Auto 3200 /uL (1100-4500); Mean Corpuscular HGB Conc 34.9 % (30-36); Mean Corpuscular Hemoglobin 31.1 PG (26-34); Mean Corpuscular Volume 89.1 fL (80-100); Monocytes Absolute Auto 700 /uL (0-900); Neutrophils Absolute Auto 6300 /uL (1500-7000); Neutrophils Percent Auto 59.9 % (50-75); Platelet Count 190 X10^3/uL (150-400); Red Blood Cell Count 4.86 X10^6/uL (4.0-5.2); Red Cell Distribution Width 12.6 % (11.6-14.8); White Blood Cell Count 10.4 X10^3/uL (4.5-11.0)
[2020-09-28 19:36] LABS: Alanine Aminotransferase 18 IU/L (<35); Albumin 4.7 g/dL (3.5-5.0); Albumin Globulin Ratio 1.4 (1.0-2.8); Alkaline Phosphatase 63 U/L (38-126); Aspartate Aminotransferase 27 IU/L (14-36); BUN Creatinine Ratio 27.3 (6-22); Bilirubin Total 0.3 mg/dL (0.2-1.3); Blood Urea Nitrogen 15 mg/dL (7-17); Calcium 9.7 mg/dL (8.4-10.2); Carbon Dioxide 26 mmol/L (22-32); Chloride 108 mmol/L (98-107); Estimated Glomerular Filt Rate > 60.0 mL/min (>60); Globulin 3.3 g/dL (1.7-4.1); Glucose 93 mg/dL (70-100); HEMOLYSIS < 15 (0-50); Lipase 277 U/L (23-300); Potassium 3.4 mmol/L (3.4-5.1); Sodium 141 mmol/L (137-145)
[2020-09-28 19:54] LABS: Squamous Epithelial Cell Urine 5-10 /HPF (0-5/HPF); WBC Urine 0-1/HPF (0-5/HPF)
[2020-09-28 19:55] LABS: Bacteria Urine Few (2-10); Culture Indicated Urine Cult Not Indicated; RBC Urine 5-10/HPF (0-5/HPF)
== END 2020-09-28 21:12 | disposition home or self-care (01) ==
PROVIDERS: Emergency Provider Emergency Medicine; Family Provider Nurse Practitioner Family; PCP Nurse Practitioner Family
DX: R10.11 Right upper quadrant pain (principal); Z86.711 Personal history of pulmonary embolism; Z90.710 Acquired absence of both cervix and uterus; D68.51 Activated protein C resistance
CPT/HCPCS: 36415; 76705; 80053; 81003; 81015; 83690; 85025; 93005; 99283; 99284

== ENCOUNTER → 2020-11-11 09:43 | Outpatient (CLI) | payer OTHER, MEDICAID, SELFPAY ==
[2020-06-16 11:14] VITALS: BMI 26.6
[2020-11-11 10:20] LABS: COVID19 -Nasal RAPID Negative (Negative)
== END ==
PROVIDERS: Family Provider Nurse Practitioner Family; PCP Nurse Practitioner Family; Visit Provider Surgery
DX: Z20.822 Contact with and (suspected) exposure to COVID-19 (principal); Z01.812 Encounter for preprocedural laboratory examination
CPT/HCPCS: 87635; C9803

== ENCOUNTER 2020-11-12 11:29 | Day surgery (SDC) | payer OTHER, MEDICAID, SELFPAY ==
[2020-06-16 11:14] VITALS: BMI 26.6
[2020-11-12] VITALS (10 sets, daily range): BP systolic 109–145; BP diastolic 73–87; PULSE 5–106; RESP 13–18; TEMP 36.3–36.8; O2SAT 98–100; BMI 24.7
--- NOTE | 2020-11-12 | PATH_ITS ---
[facility] Accession Number: [id number] . 01 Material submitted: . thigh - RIGHT AND LEFT THIGHS MASSES . 01 Clinical history: . [facility] [place] . 01 Diagnosis: Right and Left Thigh, Excisions: Fragments of angiolipoma. MRV 11/17/2020 1122 Local . 01 Electronically signed: . Aldo Kaiser MD, Dermatopathologist NPI- [id number] . 01 Gross description: . The specimen is received in formalin, labeled right and left thigh masses and consists of five irregular haywood fragments of adipose tissue, ranging from 1.0 to 1.9 cm, and measuring 3.2 x 3.0 x 1.5 cm in aggregate. The tissue fragments are inked blue and sectioned to reveal haywood-yellow lobulated cut surfaces. The specimen is entirely submitted. . A1 - Two bisected fragments (blue and green). A2-A4 - Remainder of fragments, bisected. ([id number]) /[facility] 11/13/20201651 Local . 01 Pathologist provided ICD-10: D17.9 . 01 CPT . 345904 Performed at: 01 [facility] [address], [place], [place] [id number] MD Reagan Tomlin MD Phone: [phone]
--- NOTE | 2020-11-12 07:58 | PM.PREOP ---
Pre-operative Note COVID-19 COVID-19 status: Negative Result date/Date tested (Pos, Neg/Pending): 11/11/20 Interval Note History & Physical reviewed/Exam performed by Physician: Yes Changes to H&P: Yes H&P completed within 30 days and has changed as indicated here:: Patient has identified two additional masses on her left thigh, and one additional mass on her right thigh. Her consent form was updated to include left and right thigh masses, and initialed by me and the patient.
[2020-11-12] MEDS: LACTATED RINGERS 1,000 ML 100 ML IV (12:26)
[2020-11-12] MEDS: levoFLOXacin 500 MG/100 ML PIGGYBACK 100 MG IV (13:00)
--- NOTE | 2020-11-12 13:18 | SUR.OPER ---
Supine on padded OR bed, head on pillow, arms secured on padded arm boards at <90 degrees abduction, legs uncrossed, safety belt at thigh, tape over blanket over lower legs.
[2020-11-12] MEDS: BUPIVACAINE 0.5% W/ EPI (PF) 30 ML VIAL INJ (13:29)
--- NOTE | 2020-11-12 13:38 | PM.OP.1 ---
Operative Date/Time/Diagnoses Date of procedure: 11/12/20 Time of procedure: 13:38 Pre-op diagnosis: multiple painful masses, anterior thighs Post-op diagnosis: same Procedure & Clinicians Procedure: excision of anterior thigh masses x 5 separate incisions; 3 x 3cm in aggregate Same procedure as scheduled: Yes Indications: masses of anterior thighs causing painful parasthesias, unknown malignant potential Surgeon: Brenda Clifford Click Yes if Unassisted: Yes Anesthesia Type: General Operative Notes Findings: Firm fatty masses x 5, appearance consistent with angiolipoma Specimen(s): other (five fatty masses from anterior thighs) Estimated Blood Loss (mL): 1 Blood products transfused: none Procedure in detail: 5 vertical incisions 1cm each; multiple fatty masses, 3cm x 3cm in aggregate closed with monocryl and dermabond The patient was brought into the OR and placed supine on the OR table. Sequential compression devices were placed on both legs and turned on. General anesthesia was induced and the patient was intubated by the anesthesiologist with LMA. Appropriate perioperative antibiotics were given. Both anterior thighs were prepped and draped in sterile fashion. Surgical time-out was conducted. A 1cm vertical incision was made over the most lateral right thigh palpable mass. Dissection was carried down through the dermis and subcutaneous fat, until a hard mass popped through. The vascular pedical was cauterized with Bovie. The mass was passed off for pathology. A 1cm vertical incision was made over the middle right thigh palpable mass. Dissection was carried down through the dermis and subcutaneous fat, until a hard mass popped through. The vascular pedical was cauterized with Bovie. The mass was passed off for pathology. A 1cm vertical incision was made over the most medial right palpable mass. Dissection was carried down through the dermis and subcutaneous fat, until a hard mass popped through. The vascular pedical was cauterized with Bovie. The mass was passed off for pathology. A 1cm vertical incision was made over the medial left thigh palpable mass. Dissection was carried down through the dermis and subcutaneous fat, until a hard mass popped through. The vascular pedical was cauterized with Bovie. The mass was passed off for pathology. A 1cm vertical incision was made over the left thigh lateral palpable mass. Dissection was carried down through the dermis and subcutaneous fat, until a hard mass popped through. The vascular pedical was cauterized with Bovie. The mass was passed off for pathology. All incisions were closed with 4-0 Monocryl and the skin edges were sealed with dermabond. The patient was then awakened from anesthesia and extubated. Needle sponge and instrument counts were correct x 2. The patient was transferred to the PACU in stable condition. Complications: none Post-operative Condition: stable Disposition: PACU
[2020-11-12] MEDS: fentaNYL 100 MCG/2 ML INJ IV (13:52)
[2020-11-12] MEDS: OXYCODONE/ACETAMINOPHEN 5/325 TABLET 1 TAB PO (13:53)
== END 2020-11-12 14:47 | disposition home or self-care (01) ==
PROVIDERS: Family Provider Nurse Practitioner Family; PCP Nurse Practitioner Family; Referring Provider Surgery; Visit Provider Surgery
PROC: (CPT 27327; principal; 2020-11-12 13:00)
DX: D17.23 Benign lipomatous neoplasm of skin and subcutaneous tissue of right leg (principal); D17.24 Benign lipomatous neoplasm of skin and subcutaneous tissue of left leg; L29.9 Pruritus, unspecified; R20.2 Paresthesia of skin; F41.9 Anxiety disorder, unspecified
CPT/HCPCS: 27327 ×5; J1100; J1956; J2405; J2704; J3010

== ENCOUNTER → 2022-03-03 07:51 | Outpatient (CLI) | payer OTHER, MEDICAID, SELFPAY ==
[2021-05-13 13:18] VITALS: BMI 26.6
== END ==
PROVIDERS: Family Provider Nurse Practitioner Family; PCP Nurse Practitioner Family; Visit Provider Physician Assistant
DX: R10.9 Unspecified abdominal pain (principal)
CPT/HCPCS: 87086

== ENCOUNTER → 2022-03-03 08:19 | Outpatient (CLI) | payer OTHER, MEDICAID, SELFPAY ==
[2021-05-13 13:18] VITALS: BMI 26.6
[2022-03-03 08:38] LABS: Add Manual Diff / Slide Review NO; Basophils Absolute Auto 100 /uL (0-100); Basophils Percent Auto 0.8 % (0-2); Eosinophils Absolute Auto 200 /uL (0-450); Eosinophils Percent Auto 1.9 % (2-4); Hematocrit 40.9 % (36-46); Hemoglobin 14.2 g/dL (12.0-16.0); Lymphocytes Absolute Auto 3900 /uL (1100-4500); Lymphocytes Percent Auto 42.5 % (25-40); Mean Corpuscular HGB Conc 34.7 % (30-36); Mean Corpuscular Hemoglobin 30.5 PG (26-34); Monocytes Absolute Auto 700 /uL (0-900); Monocytes Percent Auto 7.7 % (3-14); Neutrophils Absolute Auto 4300 /uL (1500-7000); Neutrophils Percent Auto 47.1 % (50-75); Platelet Count 189 X10^3/uL (150-400); Red Blood Cell Count 4.65 X10^6/uL (4.0-5.2); Red Cell Distribution Width 13.3 % (11.6-14.8); White Blood Cell Count 9.2 X10^3/uL (4.5-11.0)
[2022-03-03 08:54] LABS: Alanine Aminotransferase 16 IU/L (<35); Albumin 4.4 g/dL (3.5-5.0); Albumin Globulin Ratio 1.5 (1.0-2.8); Alkaline Phosphatase 50 U/L (38-126); Aspartate Aminotransferase 23 IU/L (14-36); BUN Creatinine Ratio 15.6 (6-22); Bilirubin Total 0.5 mg/dL (0.2-1.3); Blood Urea Nitrogen 10 mg/dL (7-17); Calcium 8.8 mg/dL (8.4-10.2); Carbon Dioxide 27 mmol/L (22-32); Chloride 104 mmol/L (98-107); Estimated Glomerular Filt Rate > 60 mL/min (>60); Globulin 2.9 g/dL (1.7-4.1); Glucose 77 mg/dL (70-100); HEMOLYSIS < 15 (0-50); Lipase 331 U/L (23-300); Sodium 138 mmol/L (137-145); Total Protein 7.3 g/dL (6.3-8.2)
== END ==
PROVIDERS: Family Provider Nurse Practitioner Family; PCP Nurse Practitioner Family; Referring Provider Physician Assistant; Visit Provider Physician Assistant
DX: R10.30 Lower abdominal pain, unspecified (principal)
CPT/HCPCS: 36415; 80053; 83690; 85025

== ENCOUNTER → 2022-03-03 09:02 | Outpatient (CLI) | payer OTHER, MEDICAID, SELFPAY ==
[2021-05-13 13:18] VITALS: BMI 26.6
--- NOTE | 2022-03-03 09:03 | DI.US.S_ITS ---
PROCEDURE: US PELVIC LIMITED INDICATIONS: RIGHT PELVIC PAIN. HISTORY OF OVARIAN CYSTS/HYSTERECTOMY. TECHNIQUE: Real-time transabdominal scanning was performed of the pelvic organs, with image documentation. COMPARISON: [facility], US, US PELVIC COMPLETE, 04/29/2020, 11:22. [facility], CT, CT KIDNEY URETER BLADDER (KUB), 04/19/2020, 19:56. FINDINGS: Uterus: Surgically absent. Vaginal cuff is unremarkable. Ovaries: Right ovary measures 3.4 x 3 x 1.6 cm. Small anechoic follicle measuring 1.5 cm. Left ovary is not identified. Other: No pathologic free abdominal or pelvic fluid. IMPRESSION: 1. No abnormality identified to explain the patient's pelvic pain. 2. Post hysterectomy. 3. Left ovary is not seen. Consider further evaluation with CT abdomen pelvis with IV contrast. We strive to produce accurate, complete, and clear reports of imaging services. To assist us in improving patient care, this report was composed using standard report templates and voice recognition software. Therefore, it may contain abnormal punctuation, insertions and/or omissions. Occasional wrong-word or sound-alike substitutions may occur. Though we review the report and make efforts to correct it, we do recommend that the report be read carefully in proper context to recognize any text inaccuracies. Dictated by: Bandar Hayes M.D. on 03/03/2022 at 10:14 Approved by: Bandar Hayes M.D. on 03/03/2022 at 10:23
== END ==
PROVIDERS: Family Provider Nurse Practitioner Family; PCP Nurse Practitioner Family; Referring Provider Physician Assistant; Visit Provider Physician Assistant
DX: R10.30 Lower abdominal pain, unspecified (principal); R10.9 Unspecified abdominal pain
CPT/HCPCS: 36415; 76857; 80053; 83690; 85025; 87086

== ENCOUNTER → 2022-04-19 11:14 | Outpatient (CLI) | payer OTHER, MEDICAID, SELFPAY ==
[2021-05-13 13:18] VITALS: BMI 26.6
[2022-04-19 14:08] LABS: Add Manual Diff / Slide Review NO; Basophils Absolute Auto 100 /uL (0-100); Basophils Percent Auto 0.7 % (0-2); Eosinophils Absolute Auto 100 /uL (0-450); Eosinophils Percent Auto 1.4 % (2-4); Hematocrit 43.3 % (36-46); Hemoglobin 14.8 g/dL (12.0-16.0); Lymphocytes Absolute Auto 3200 /uL (1100-4500); Lymphocytes Percent Auto 36.7 % (25-40); Mean Corpuscular HGB Conc 34.1 % (30-36); Mean Corpuscular Hemoglobin 30.6 PG (26-34); Mean Corpuscular Volume 89.7 fL (80-100); Monocytes Absolute Auto 600 /uL (0-900); Neutrophils Absolute Auto 4800 /uL (1500-7000); Neutrophils Percent Auto 54.2 % (50-75); Platelet Count 177 X10^3/uL (150-400); Red Blood Cell Count 4.83 X10^6/uL (4.0-5.2); Red Cell Distribution Width 12.8 % (11.6-14.8); White Blood Cell Count 8.8 X10^3/uL (4.5-11.0)
[2022-04-23 09:25] LABS: Alanine Aminotransferase 12 IU/L (<35); Albumin 4.4 g/dL (3.5-5.0); Albumin Globulin Ratio 1.7 (1.0-2.8); Alkaline Phosphatase 51 U/L (38-126); Aspartate Aminotransferase 21 IU/L (14-36); Bilirubin Total 0.5 mg/dL (0.2-1.3); Blood Urea Nitrogen 14 mg/dL (7-17); Calcium 9.2 mg/dL (8.4-10.2); Carbon Dioxide 26 mmol/L (22-32); Chloride 104 mmol/L (98-107); Estimated Glomerular Filt Rate > 60 mL/min (>60); Globulin 2.6 g/dL (1.7-4.1); Glucose 92 mg/dL (70-100); HEMOLYSIS < 15 (0-50); Lipase 484 U/L (23-300); Potassium 4.7 mmol/L (3.4-5.1); Sodium 138 mmol/L (137-145)
[2022-04-23 09:58] LABS: TSH w/ Reflex to FT4 2.19 uIU/mL (0.47-4.68)
== END ==
PROVIDERS: Family Provider Nurse Practitioner Family; PCP Pediatrics; Referring Provider Pediatrics; Visit Provider Pediatrics
DX: F41.9 Anxiety disorder, unspecified (principal); R10.9 Unspecified abdominal pain; R53.83 Other fatigue; R74.8 Abnormal levels of other serum enzymes; Z13.228 Encounter for screening for other metabolic disorders; Z13.29 Encounter for screening for other suspected endocrine disorder
CPT/HCPCS: 36415; 80053; 83690; 84443; 85025

== ENCOUNTER → 2022-04-23 06:32 | Outpatient (CLI) | payer OTHER, MEDICAID, SELFPAY ==
[2021-05-13 13:18] VITALS: BMI 26.6
[2022-04-23 08:25] LABS: Appearance Urine UA CLEAR; Bilirubin Urine UA NEGATIVE (NEGATIVE); Color Urine UA YELLOW; Glucose Urine UA NEGATIVE (Negative); Ketones Urine UA NEGATIVE (NEGATIVE); Leukocyte Esterase Urine UA NEGATIVE (NEGATIVE); Nitrite Urine UA NEGATIVE (Negative); Occult Blood Urine UA 1+ (Negative); Protein Urine UA NEGATIVE (Negative); Specific Gravity Urine UA 1.015 (1.000-1.035); Urobilinogen Urine UA 0.2 E.U./dL (0.2)
[2022-04-23 09:21] LABS: Bacteria Urine None Seen; Culture Indicated Urine Cult Not Indicated; RBC Urine 0-1/HPF (0-5/HPF); Squamous Epithelial Cell Urine >30 /HPF (0-5/HPF); WBC Urine None Seen (0-5/HPF)
== END ==
PROVIDERS: Family Provider Nurse Practitioner Family; PCP Pediatrics; Referring Provider Pediatrics; Visit Provider Pediatrics
DX: R31.9 Hematuria, unspecified (principal)
CPT/HCPCS: 81001

== ENCOUNTER 2023-04-18 10:25 | Emergency (ER) | payer OTHER, MEDICAID, SELFPAY ==
[2021-05-13 13:18] VITALS: BMI 26.6
[2023-04-18] VITALS (7 sets, daily range): BP systolic 117–160; BP diastolic 59–104; PULSE 67–95; RESP 14–20; TEMP 37.1; O2SAT 96–99; BMI 28.3
[2023-04-18 10:47] LABS: Add Manual Diff / Slide Review NO; Basophils Absolute Auto 100 /uL (0-100); Basophils Percent Auto 0.9 % (0-2); Eosinophils Absolute Auto 100 /uL (0-450); Eosinophils Percent Auto 1.3 % (2-4); Hematocrit 41.3 % (36-46); Hemoglobin 14.4 g/dL (12.0-16.0); Lymphocytes Absolute Auto 3000 /uL (1100-4500); Lymphocytes Percent Auto 30.1 % (25-40); Mean Corpuscular HGB Conc 34.8 % (30-36); Mean Corpuscular Hemoglobin 30.7 PG (26-34); Mean Corpuscular Volume 88.2 fL (80-100); Monocytes Absolute Auto 600 /uL (0-900); Monocytes Percent Auto 6.4 % (3-14); Neutrophils Absolute Auto 6200 /uL (1500-7000); Neutrophils Percent Auto 61.3 % (50-75); Platelet Count 229 X10^3/uL (150-400); Red Blood Cell Count 4.69 X10^6/uL (4.0-5.2); White Blood Cell Count 10.1 X10^3/uL (4.5-11.0)
--- NOTE | 2023-04-18 10:55 | ED_ITS ---
HPI - Abdominal Pain General Chief Complaint: Abdominal Pain Stated Complaint: sent by Juan PRAlana poss gallbladder issues Time Seen by Provider: 04/18/23 10:43 Source: patient Mode of arrival: Ambulatory History of Present Illness HPI narrative: Patient is a 38-year-old female history of ovarian cyst presenting today with right-sided abdominal pain. She initially thought it was ovarian cyst pain it waxes and wanes. She feels nauseous. She has some upper quadrant pain and lower quadrant pain. Minimal flank pain. It is progressively gotten worse today. No fever or chills. Related Data Home Medications Medication Instructions Recorded Confirmed acetaminophen 325 mg tablet 325 mg PO PRN PRN Pain, Mild 08/07/18 02/09/23 (Tylenol) aspirin 81 mg tablet,delayed 81 mg PO DAILY 02/09/23 02/09/23 release (Adult Aspirin Regimen) Previous Rx's Medication Instructions Recorded ibuprofen 600 mg tablet 600 mg PO Q6H PRN pain #30 tabs 06/27/20 Keto plus apple cider 3 tab PO DAILY #100 tabs 05/28/21 melatonin 10 mg tablet 20 mg PO BEDTIME PRN sleep #90 tabs 02/09/23 trazodone 50 mg tablet 50 mg PO BEDTIME PRN insomnia #90 02/09/23 tabs hydrocodone 5 mg-acetaminophen 325 1 tab PO Q6H PRN pain #10 tabs 04/18/23 mg tablet Allergies Allergy/AdvReac Type Severity Reaction Status Date / Time Penicillins Allergy Severe ANAPHYLAXIS Verified 04/18/23 10:40 /HIVES acetaminophen [From Percocet] AdvReac Intermediate Vomiting Verified 04/18/23 10:41 hydrocodone [From [place]] AdvReac Intermediate Vomiting Verified 04/18/23 10:41 oxycodone [From Percocet] AdvReac Intermediate Vomiting Verified 04/18/23 10:41 morphine AdvReac Mild itching, Verified 04/18/23 10:40 doesn't work Review of Systems Review of Systems ROS Unobtainable: All systems reviewed & are unremarkable except as noted in HPI and below Patient History Medical History Anxiety Chronic low back pain Chronic pelvic pain in female Dermatitis Factor 5 Leiden mutation, heterozygous Former smoker History of drug abuse in remission History of pneumonia History of UTI Insomnia Lumbar spondylosis Pulmonary embolism (12/23/15) Pyelonephritis Right inguinal pain Routine Papanicolaou smear Temporary weakness of extremity Tingling (2018) Surgical History History of vaginal hysterectomy Status post D&C Status post tonsillectomy Status post tubal ligation Family History Brother Age: 29 Autism Mother Age: 70 Factor V Leiden Sister Age: 41 Factor V Leiden Gallstones Grandfather Hypertension Grandmother Cancer Social History marital status: unknown household members: children occupational status: employed Smoking Status: Former smoker Tobacco: How many years used: 15 quit status: has quit before second hand exposure: Yes alcohol intake: current (1-2 drinks per day ) substance use type: former substance user (methammphetamine ) and methamphetamine (Quit 2008, 6.5 years ) Smoking Status: Former smoker alcohol intake frequency: a few times a week Substance Use Type: former substance user Exam Initial Vital Signs Initial Vital Signs: Vital Signs Temperature 98.8 F 04/18/23 10:30 Pulse Rate 95 H 04/18/23 10:30 Respiratory Rate 16 04/18/23 10:30 Blood Pressure 160/104 H 04/18/23 10:30 Pulse Oximetry 99 04/18/23 10:30 Oxygen Delivery Method Room Air 04/18/23 10:30 GENERAL: Alert 38-year-old female appears uncomfortable HEENT: Head atraumatic,EOMI, pupils reactive, face symmetric, moist mucous membranes CARDIOVASCULAR: Regular rate and rhythm without murmurs, rubs or gallops. RESPIRATORY: Breath sounds equal bilaterally, no wheezes rales or rhonchi. ABDOMEN: Soft, positive Valenzuela sides and tender right upper quadrant mild right lower quadrant pain as well no guarding no rebound EXTREMITIES: Normal range of motion, no clubbing or edema. Neurovascularly intact NEUROLOGICAL: Alert and oriented x4. SKIN: Warm, dry, no laceration, no petechiae, no rashes or lesions. Course Orders Ordered: ED Orders 04/18/23 10:41 Complete Blood Count AUTO DIFF Stat Comprehensive Metabolic Panel Stat Lipase Stat 04/18/23 11:02 CT abdomen pelvis w con Stat US abdomen limited Stat Discontinued Medications Ketorolac Tromethamine (Ketorolac 30 Mg/Ml Vial) 15 mg IV NOW ONE Stop: 04/18/23 11:03 Last Admin: 04/18/23 11:17 Dose: 15 mg Documented By: ALESHIA Ondansetron HCl (Ondansetron 4 Mg Odt) 4 mg PO NOW PRN PRN Reason: Nausea And Vomiting Ondansetron HCl (Ondansetron 4 Mg/2 Ml Inj) 4 mg IV NOW PRN PRN Reason: Nausea And Vomiting Vital Signs Vital signs: Vital Signs - 8 hr 04/18/23 10:30 04/18/23 10:40 04/18/23 11:00 Temperature 98.8 F Pulse Rate 95 H 82 Respiratory Rate 16 Blood Pressure 160/104 H 146/91 H Pulse Oximetry 99 97 Oxygen Delivery Method Room Air 04/18/23 11:00 04/18/23 11:30 04/18/23 11:30 Temperature Pulse Rate 92 H 82 Respiratory Rate 20 Blood Pressure 138/88 Pulse Oximetry 98 96 Oxygen Delivery Method Room Air 04/18/23 11:49 04/18/23 11:49 04/18/23 12:00 Temperature Pulse Rate 75 Respiratory Rate Blood Pressure 133/73 121/73 Pulse Oximetry 97 Oxygen Delivery Method 04/18/23 12:00 04/18/23 12:30 04/18/23 12:30 Temperature Pulse Rate 71 67 Respiratory Rate 14 Blood Pressure 117/59 L Pulse Oximetry 97 97 Oxygen Delivery Method Room Air MDM - Abdominal Pain Lab Data 04/18/23 10:41 04/18/23 10:41 Labs: Lab Results 04/18/23 04/18/23 Range/Units 10:41 10:41 WBC 10.1 (4.5-11.0) X10^3/uL RBC 4.69 (4.0-5.2) X10^6/uL Hgb 14.4 (12.0-16.0) g/dL Hct 41.3 (36-46) % MCV 88.2 (80-100) fL MCH 30.7 (26-34) PG MCHC 34.8 (30-36) % RDW 13.0 (11.6-14.8) % Plt Count 229 (150-400) X10^3/uL Neut % (Auto) 61.3 (50-75) % Lymph % (Auto) 30.1 (25-40) % [place] % (Auto) 6.4 (3-14) % Eos % (Auto) 1.3 L (2-4) % Baso % (Auto) 0.9 (0-2) % Neut # (Auto) 6200 (5449-6734) /uL Lymph # (Auto) 3000 (8005-2708) /uL [place] # (Auto) 600 (0-900) /uL Eos # (Auto) 100 (0-450) /uL Baso # (Auto) 100 (0-100) /uL Sodium 138 (137-145) mmol/L Potassium 4.3 (3.4-5.1) mmol/L Chloride 106 (98-107) mmol/L Carbon Dioxide 25 (22-32) mmol/L BUN 11 (7-17) mg/dL Creatinine 0.56 (0.52-1.04) mg/dL Estimated GFR > 60 (>60) mL/min BUN/Creatinine Ratio 19.6 (6-22) Glucose 95 (70-100) mg/dL Calcium 8.4 (8.4-10.2) mg/dL Total Bilirubin 0.6 (0.2-1.3) mg/dL AST 33 (14-36) IU/L ALT 25 (<35) IU/L Alkaline Phosphatase 69 (38-126) U/L Total Protein 8.0 (6.3-8.2) g/dL Albumin 4.6 (3.5-5.0) g/dL Globulin 3.4 (1.7-4.1) g/dL Albumin/Globulin Ratio 1.4 (1.0-2.8) Lipase 367 H (23-300) U/L Imaging Data CT scan - abdomen/pelvis: Radiologist's Impression: PROCEDURE:? CT ABDOMEN PELVIS W CON ? INDICATIONS:? right lower quadrant pain ? TECHNIQUE:? After the administration of oral and IV contrast, axial sections were acquired from the lung bases to the pubic symphysis.? Coronal and sagittal reformats were performed.? For radiation dose reduction, the following was used:? automated exposure control, adjustment of mA and/or kV according to patient size. ? COMPARISON:? [facility], CT, CT KIDNEY URETER BLADDER (KUB), 11/19/2018, 11:29.? [facility], CT, CT KIDNEY URETER BLADDER (KUB), 04/19/2020, 19:56. ? FINDINGS:? Image quality:? Excellent.? ? Lung bases:? Unremarkable.? ? Heart:? No significant findings. ? ? ABDOMEN: Liver:? Normal size.? Mild hepatic steatosis.? ? Gallbladder:? Unremarkable.? ? Biliary ducts:? Unremarkable.? ? Pancreas:? Unremarkable.? ? Spleen:? Unremarkable.? ? Adrenal Glands:? Unremarkable.? ? Kidneys and Ureters:? Unremarkable.? ? ? Stomach and Bowel:? Stomach, small bowel loops, and colon are normal in caliber.? Appendix is normal (series 2 image [id number]).? There is mild stranding in the right lower quadrant adjacent to the cecum, compatible with epiploic appendagitis. Peritoneum:? No abnormal intraperitoneal fluid.? No free air.? ? Ventral Wall: ? No hernia.? Abdominal Nodes:? No retroperitoneal or mesenteric adenopathy by size criteria.? Vessels:? Aorta and inferior vena cava are normal in size.? ? PELVIS: Pelvic Organs:? Unremarkable.? Note is made of air within the vagina.? Bladder:? Unremarkable.? ? Pelvic Nodes: No enlarged lymph nodes.? Miscellaneous: No inguinal hernias are seen. ? ? ? Bones:? Unremarkable.? IMPRESSION:? ? 1. Mild fat stranding adjacent to the cecum, suggesting epiploic appendagitis. ? 2. Normal appearance of appendix.? US - abdomen: Radiologist's Impression: PROCEDURE:? US ABDOMEN LIMITED ? INDICATIONS:? RUQ PAIN ? TECHNIQUE:? Real-time scanning was performed of the abdominal and retroperitoneal organs, with image documentation.? ? COMPARISON:? [facility], US, US ABDOMEN LIMITED, 09/28/2020, 19:50. ? FINDINGS: Liver:? Liver is normal in size and homogeneous in echotexture.? ? Gallbladder:? Gallbladder is normal in sonographic appearance without gallstones, gallbladder wall thickening, pericholecystic fluid, or abnormal sonographic Valenzuela's.? ? Biliary ducts:? Intrahepatic bile ducts are non-dilated.? Extrahepatic bile duct caliber measures 4 mm.? Normal is 6-7 mm or less in diameter, or 10 mm or less post-cholecystectomy.? ? Pancreas:? Visualized portions of the pancreas are sonographically normal.? ? Miscellaneous:? No free abdominal fluid.? ? ? IMPRESSION:? Normal sonographic evaluation of the right upper abdomen. ? Dictated by: Ben Howard M.D. on 04/18/2023 at 10:37 MDM Narrative Medical decision making narrative: Patient is a healthy 38-year-old female who presents today with right-sided abdominal pain coming and going in waves. Blood work does not show any leukoc ytosis, anemia, electrolyte abnormality, INDIRA, elevated liver enzymes or bilirubin when lipase within normal limits. Ultrasound of gallbladder does not show any evidence of cholelithiasis or cholecystitis. CT does show epiploic appendagitis. No need for antibiotics or surgery at this time. Pain control and supportive measures only. She did get some relief with Toradol but not a lot. Will give her some hydrocodone at home. Discharge Plan Departure Patient Disposition: Home Clinical Impression: Epiploic appendagitis Instructions: Diverticulitis Activity Restrictions/Additional Instructions: *You have been diagnosed with epiploic appendagitis *What to do: At this time no need for antibiotics. Should resolve with anti- inflammatories time. However if still having symptoms you may require surgery consultation. *Continue to take medications as directed Ibuprofen 600 mg every 6 hours for 6 days [place] 1 tablet every 6 hours if needed for severe pain *Follow up with your primary care provider in 2-3 days or call [phone] May call surgery to schedule follow-up appointment in 1-2 weeks *Return to ER if you should have increasing pain nausea vomiting fever inability to walk or any new, worsening or concerning symptoms CONTROLLED SUBSTANCE DISCHARGE (Narcotoic/benzodiazepine/Flexeril/Phenergan) 1. You have been prescribed narcotic medications, it does have acetaminophen/T ylenol/paracetamol in it, DO NOT TAKE MORE THAN 4,00mg in 24 hours of Tylenol. TRAMADOL DOES NOT CONTAIN TYLENOL 2. Please understand that we cannot provide further refills of narcotics, benzodiazepines or controlled substances through the ED and her pain management will need to be through your provider. 3. While on these medications you cannot drive or operate heavy machinery. 4. You cannot sign legal documents or perform any duties such as this. 5. As long as you're taking opiate pain medications he should also be taking a stool softener such as Colace, Dulcolax, MiraLAX or prune juice, to help avoid constipation. Prescriptions: New hydrocodone-acetaminophen 5-325 mg tablet 1 tab PO Q6H PRN (Reason: pain) Qty: 10 0RF No Action aspirin [Adult Aspirin Regimen] 81 mg tablet,delayed release (DR/EC) 81 mg PO DAILY trazodone 50 mg tablet 50 mg PO BEDTIME PRN (Reason: insomnia) Qty: 90 0RF Rx Instructions: ok to titrate dose between 25-150 to find minimal effective dose melatonin 10 mg tablet 20 mg PO BEDTIME PRN (Reason: sleep) Qty: 90 0RF Rx Instructions: can repeat if needed ibuprofen 600 mg tablet 600 mg PO Q6H PRN (Reason: pain) Qty: 30 3RF Keto plus apple cider 3 tab PO DAILY Qty: 100 0RF acetaminophen [Tylenol] 325 mg Tablet 325 mg PO PRN PRN (Reason: Pain, Mild) Referrals: [facility] [Provider Group] Tiffanie Cannon DO [Primary Care Provider] - Stand Alone Forms: Patient Portal/API, Work Release Note
[2023-04-18 10:58] LABS: Alanine Aminotransferase 25 IU/L (<35); Albumin 4.6 g/dL (3.5-5.0); Albumin Globulin Ratio 1.4 (1.0-2.8); Alkaline Phosphatase 69 U/L (38-126); Aspartate Aminotransferase 33 IU/L (14-36); BUN Creatinine Ratio 19.6 (6-22); Bilirubin Total 0.6 mg/dL (0.2-1.3); Blood Urea Nitrogen 11 mg/dL (7-17); Calcium 8.4 mg/dL (8.4-10.2); Carbon Dioxide 25 mmol/L (22-32); Chloride 106 mmol/L (98-107); Estimated Glomerular Filt Rate > 60 mL/min (>60); Globulin 3.4 g/dL (1.7-4.1); Glucose 95 mg/dL (70-100); Lipase 367 U/L (23-300); Potassium 4.3 mmol/L (3.4-5.1); Sodium 138 mmol/L (137-145)
[2023-04-18 11:00] LABS: HEMOLYSIS 71 (0-50)
--- NOTE | 2023-04-18 11:02 | DI.US.S_ITS ---
PROCEDURE: US ABDOMEN LIMITED INDICATIONS: RUQ PAIN TECHNIQUE: Real-time scanning was performed of the abdominal and retroperitoneal organs, with image documentation. COMPARISON: [facility], , US ABDOMEN LIMITED, 09/28/2020, 19:50. FINDINGS: Liver: Liver is normal in size and homogeneous in echotexture. Gallbladder: Gallbladder is normal in sonographic appearance without gallstones, gallbladder wall thickening, pericholecystic fluid, or abnormal sonographic Valenzuela's. Biliary ducts: Intrahepatic bile ducts are non-dilated. Extrahepatic bile duct caliber measures 4 mm. Normal is 6-7 mm or less in diameter, or 10 mm or less post-cholecystectomy. Pancreas: Visualized portions of the pancreas are sonographically normal. Miscellaneous: No free abdominal fluid. IMPRESSION: Normal sonographic evaluation of the right upper abdomen. Dictated by: Ben Howard M.D. on 04/18/2023 at 10:37 Approved by: Ben Howard M.D. on 04/18/2023 at 10:38
--- NOTE | 2023-04-18 11:02 | DI.CT.S_ITS ---
PROCEDURE: CT ABDOMEN PELVIS W CON INDICATIONS: right lower quadrant pain TECHNIQUE: After the administration of oral and IV contrast, axial sections were acquired from the lung bases to the pubic symphysis. Coronal and sagittal reformats were performed. For radiation dose reduction, the following was used: automated exposure control, adjustment of mA and/or kV according to patient size. COMPARISON: [facility], CT, CT KIDNEY URETER BLADDER (KUB), 11/19/2018, 11:29. [facility], CT, CT KIDNEY URETER BLADDER (KUB), 04/19/2020, 19:56. FINDINGS: Image quality: Excellent. Lung bases: Unremarkable. Heart: No significant findings. ABDOMEN: Liver: Normal size. Mild hepatic steatosis. Gallbladder: Unremarkable. Biliary ducts: Unremarkable. Pancreas: Unremarkable. Spleen: Unremarkable. Adrenal Glands: Unremarkable. Kidneys and Ureters: Unremarkable. Stomach and Bowel: Stomach, small bowel loops, and colon are normal in caliber. Appendix is normal (series 2 image [id number]). There is mild stranding in the right lower quadrant adjacent to the cecum, compatible with epiploic appendagitis. Peritoneum: No abnormal intraperitoneal fluid. No free air. Ventral Wall: No hernia. Abdominal Nodes: No retroperitoneal or mesenteric adenopathy by size criteria. Vessels: Aorta and inferior vena cava are normal in size. PELVIS: Pelvic Organs: Unremarkable. Note is made of air within the vagina. Bladder: Unremarkable. Pelvic Nodes: No enlarged lymph nodes. Miscellaneous: No inguinal hernias are seen. Bones: Unremarkable. IMPRESSION: 1. Mild fat stranding adjacent to the cecum, suggesting epiploic appendagitis. 2. Normal appearance of appendix. Dictated by: Harry Bailey M.D. on 04/18/2023 at 11:59 Approved by: Harry Bailey M.D. on 04/18/2023 at 12:09
[2023-04-18] MEDS: KETOROLAC 30 MG/ML VIAL 15 MG IV (11:17)
== END 2023-04-18 13:04 | disposition home or self-care (01) ==
PROVIDERS: Emergency Provider Emergency Medicine; Family Provider Nurse Practitioner Family; PCP Family Medicine
DX: K63.89 Other specified diseases of intestine (principal)
CPT/HCPCS: 36415; 74177; 76705; 80053; 83690; 85025; 96374; 99284; J1885; Q9967

== ENCOUNTER → 2023-11-09 14:57 | Outpatient (CLI) | payer OTHER, SELFPAY ==
[2021-05-13 13:18] VITALS: BMI 26.6
[2023-11-09 15:32] LABS: Add Manual Diff / Slide Review NO; Basophils Absolute Auto 100 /uL (0-100); Basophils Percent Auto 0.8 % (0-2); Eosinophils Absolute Auto 200 /uL (0-450); Eosinophils Percent Auto 1.6 % (2-4); Hematocrit 42.9 % (36-46); Hemoglobin 14.8 g/dL (12.0-16.0); Lymphocytes Absolute Auto 3100 /uL (1100-4500); Lymphocytes Percent Auto 33.5 % (25-40); Mean Corpuscular HGB Conc 34.5 % (30-36); Mean Corpuscular Hemoglobin 30.6 PG (26-34); Mean Corpuscular Volume 88.8 fL (80-100); Monocytes Absolute Auto 600 /uL (0-900); Monocytes Percent Auto 6.6 % (3-14); Neutrophils Absolute Auto 5400 /uL (1500-7000); Neutrophils Percent Auto 57.5 % (50-75); Platelet Count 237 X10^3/uL (150-400); Red Blood Cell Count 4.83 X10^6/uL (4.0-5.2); Red Cell Distribution Width 12.8 % (11.6-14.8); White Blood Cell Count 9.4 X10^3/uL (4.5-11.0)
[2023-11-09 16:30] LABS: Alanine Aminotransferase 20 IU/L (<35); Albumin 4.5 g/dL (3.5-5.0); Albumin Globulin Ratio 1.3 (1.0-2.8); Alkaline Phosphatase 65 U/L (38-126); Aspartate Aminotransferase 26 IU/L (14-36); BUN Creatinine Ratio 19.7 (6-22); Bilirubin Total 0.7 mg/dL (0.2-1.3); Blood Urea Nitrogen 14 mg/dL (7-17); Calcium 9.7 mg/dL (8.4-10.2); Carbon Dioxide 26 mmol/L (22-32); Chloride 100 mmol/L (98-107); Estimated Glomerular Filt Rate > 60 mL/min (>60); Globulin 3.4 g/dL (1.7-4.1); Glucose 98 mg/dL (70-100); HEMOLYSIS < 15 (0-50); Lipase 318 U/L (23-300); Sodium 135 mmol/L (137-145); Total Protein 7.9 g/dL (6.3-8.2)
[2023-11-09 17:04] LABS: Ferritin 138 ng/mL (6-137)
[2023-11-09 18:28] LABS: Vitamin D 25 Hydroxy (D3) 16.8 ng/mL (30.0-100.0)
== END ==
LOC: LAB 14:58
PROVIDERS: PCP Family Medicine; Referring Provider Physician Assistant; Visit Provider Physician Assistant
DX: R74.8 Abnormal levels of other serum enzymes (principal); R53.83 Other fatigue; K76.0 Fatty (change of) liver, not elsewhere classified; R10.30 Lower abdominal pain, unspecified; E55.9 Vitamin D deficiency, unspecified
CPT/HCPCS: 36415; 80053; 82306; 82728; 83690; 84443; 85025

== ENCOUNTER → 2023-12-07 07:01 | Outpatient (CLI) | payer OTHER, SELFPAY ==
[2021-05-13 13:18] VITALS: BMI 26.6
--- NOTE | 2023-12-07 07:02 | DI.US.S_ITS ---
PROCEDURE: US PELVIC COMPLETE INDICATIONS: PAIN TECHNIQUE: Real-time scanning was performed of the pelvic organs, with image documentation. Additional endovaginal scanning was necessary due to incomplete visualization of the adnexal and endometrial structures by transabdominal scanning. Color and spectral Doppler of the ovaries was performed due to the presence of pain. COMPARISON: [facility], US, US PELVIC COMPLETE, 04/29/2020, 11:22. FINDINGS: Uterus: Absent. Ovaries: The right ovary measures 1.7 x 1.5 x 3.2 cm, with a calculated ovarian volume of 4 cc. The left ovary measures 3.8 x 2.5 x 2 cm, with a calculated ovarian volume of 10.5 cc. The ovaries have a normal sonographic appearance. Less than 12 follicles can be seen in each ovary. No adnexal masses are seen. Patent arterial vasculature. Left ovarian follicle with an avascular nodule measuring 2.4 x 1.9 x 1.8 centimeter. Other: No pathologic free abdominal or pelvic fluid. IMPRESSION: Left ovarian follicle within avascular nodule measuring 2.4 x 1.9 x 1.8 centimeters. Given the presence of pelvic pain and this nodule, recommend follow-up in 6-12 weeks. We strive to produce accurate, complete, and clear reports of imaging services. To assist us in improving patient care, this report was composed using standard report templates and voice recognition software. Therefore, it may contain abnormal punctuation, insertions and/or omissions. Occasional wrong-word or sound-alike substitutions may occur. Though we review the report and make efforts to correct it, we do recommend that the report be read carefully in proper context to recognize any text inaccuracies. Dictated by: Rangel Greco M.D. on 12/07/2023 at 9:32 Approved by: Rangel Greco M.D. on 12/07/2023 at 9:34
== END ==
LOC: US 07:01
PROVIDERS: PCP Family Medicine; Referring Provider Obstetrics & Gynecology; Visit Provider Obstetrics & Gynecology
DX: N83.9 Noninflammatory disorder of ovary, fallopian tube and broad ligament, unspecified (principal); R10.2 Pelvic and perineal pain
CPT/HCPCS: 76830; 76856; 93975

== ENCOUNTER 2024-02-03 08:58 | Day surgery (SDC) | payer OTHER, SELFPAY ==
[2021-05-13 13:18] VITALS: BMI 26.6
[2024-01-30 10:12] VITALS: BMI 29.2
[2024-02-03] MEDS: LACTATED RINGERS 1,000 ML 42 ML IV (09:32)
[2024-02-03 09:41] VITALS: BMI 29.2
[2024-02-03] MEDS: SCOPOLAMINE 1 PATCH TOP (09:51)
[2024-02-03 10:04] VITALS: BP 137/86; PULSE 84; RESP 17; TEMP 36.5; O2SAT 100
--- NOTE | 2024-02-03 11:00 | P.HPOB_ITS ---
History of Present Illness History of Present Illness Reason for admission: pelvic pain Narrative: Mara Lakhani is a 38 year old female 6 para 3 who presents for a diagnostic laparoscopy with possible fulguration of endometriosis versus lysis of adhesions. Right ovary was not visualized on ultrasound. If there is a cyst on that ovary we will remove it as well. [facility] Medical History (Updated 01/30/24 @ 10:23 by Jayne Benz RN) HTN (hypertension) Right inguinal pain Lumbar spondylosis Temporary weakness of extremity Tingling (2018) History of drug abuse in remission Insomnia History of UTI History of pneumonia Anxiety Former smoker Dermatitis Routine Papanicolaou smear Chronic pelvic pain in female Pyelonephritis Chronic low back pain Factor 5 Leiden mutation, heterozygous Deep vein thrombosis (DVT) during in third trimester (05/24/17) Pulmonary embolism (12/23/15) Factor V Leiden mutation affecting Surgical History (Updated 01/30/24 @ 10:19 by Jayne Benz RN) Hx of excision of mass (11/12/20) History of vaginal hysterectomy Status post D&C Status post tonsillectomy Status post tubal ligation Family History Brother Age: 29 Autism Mother Age: 70 Factor V Leiden Sister Age: 41 Factor V Leiden Gallstones Grandfather Hypertension Grandmother Cancer Social History marital status: unknown household members: none occupational status: employed Smoking Status: Former smoker Tobacco: How many years used: 15 quit status: has quit before second hand exposure: Yes alcohol intake: current substance use type: former substance user (methammphetamine ) and methamphetamine (Quit 2008, 6.5 years ) Meds Home Medications and Allergies Home Medications Medication Instructions Recorded Confirmed Type acetaminophen 325 mg tablet 325 mg PO PRN PRN Pain, Mild 08/07/18 02/03/24 History (Tylenol) Keto plus apple cider 3 tab PO DAILY #100 tabs 05/28/21 02/03/24 Rx progesterone micronized 200 mg 200 mg PO BEDTIME #90 caps 12/07/23 02/03/24 Rx capsule (Prometrium) Allergies Allergy/AdvReac Type Severity Reaction Status Date / Time Penicillins Allergy Severe ANAPHYLAXIS Verified 12/16/23 15:35 /HIVES hydrocodone [From [place]] AdvReac Intermediate Vomiting Verified 12/16/23 15:35 morphine AdvReac Mild itching, Verified 12/16/23 15:35 doesn't work Exam Vital Signs (past 8 hours): - 02/03/24 10:04 Temperature 97.7 F Pulse Rate 84 Respiratory Rate 17 Blood Pressure 137/86 Pulse Oximetry 100 Oxygen Delivery Method Room Air Oxygen Delivery Method Room Air Narrative Exam Narrative: HEENT: No thyromegaly, no anterior cervical or supraclavicular lymphadenopathy. Lungs:Clear to auscultation bilaterally, no wheezes. Cardiovascular: Regular rate and rhythm, no murmurs, rubs, or gallops. Abdomen: Well-healed laparoscopy scars. No hepatosplenomegaly. No masses palpable. External genitalia: Normal Vagina: Normal Cervix: Well supported Bimanual exam: Bilateral uterosacral tenderness. Extremities: No edema Assessment & Plan Assessment & Plan narrative: Assessment: 38-year-old 6 para 3 with pelvic pain, status post laparoscopic supracervical hysterectomy Unable to visualize right ovary on ultrasound Plan: Diagnostic laparoscopy with possible lysis of adhesions, possible fulguration of endometriosis, possible removal of a right ovarian cyst if visualized The risks, benefits, and alternatives to the procedure were explained to the patient. The risks including bleeding, infection, injury to the bowel, bladder, or ureters. She understands these risks and agrees to proceed. A full par Q was held and consent form was signed.
[2024-02-03] MEDS: ACETAMINOPHEN IV 1,000 MG/100 ML VIAL 400 MG IV (11:25)
--- NOTE | 2024-02-03 11:39 | SUR.OPER ---
Supine on padded OR bed, head on pillow, arms secured on padded arm boards at <90 degrees abduction, legs uncrossed, safety belt at thigh, tape over blanket over lower legs. Lithotomy on padded OR bed. [place] Pad Positioner under torso. Head on pillow, arms padded and tucked at sides. Legs secured in padded yellow fins stirrups.
--- NOTE | 2024-02-03 11:43 | SUR.OPER ---
Lithotomy on padded OR bed. [place] Pad Positioner under torso. Head on pillow, arms padded and tucked at sides. Legs secured in padded yellow fins stirrups.
[2024-02-03] MEDS: BUPIVACAINE 0.5% (PF) 30 ML, EPINEPHrine 0.15 MG INJ (11:52)
--- NOTE | 2024-02-03 12:01 | PM.PREOP ---
Pre-operative Note Interval Note History & Physical reviewed/Exam performed by Physician: Yes Changes to H&P: No H&P completed within 30 days and has changed as indicated here:: 02/03/24
--- NOTE | 2024-02-03 12:01 | PM.GYNOP.1 ---
Operative Date/Time/Diagnoses Date of procedure: 02/03/24 Time of procedure: 12:01 Pre-op diagnosis: Pelvic pain Status post laparoscopic supracervical hysterectomy and bilateral salpingectomy Post-op diagnosis: same Procedure & Clinicians Procedure: Procedures Operation Date: 02/03/24 10:45 Actual Procedure Side Surgeon p DIAGNOSTIC LAPAROSCOPY Not Applicable Janae Flores MD Indications: 38 year old with pelvic pain s/p [facility] Surgeon: Janae Flores Anesthesia Type: General and Local Operative Notes Findings: Uterus and tubes are absent Cervix in place No pelvic adhesions Normal liver and gallbladder Normal right ovary Left ovary with a 2 cm simple cyst Appendix not visualized Closure Type: primary Specimen(s): none Applied: catheter (in/out) Estimated blood loss (mL): 3 Blood products transfused: none Procedure in detail: After informed consent was obtained, the patient was taken to the operating room and placed in the dorsal supine position. After adequate general endotracheal anesthesia was achieved, she was placed in the dorsal lithotomy position, and prepped and draped in the usual sterile fashion. A moistened sponge stick was placed into the vagina. Attention was then turned to the abdomen where 6 cc of 0.5% Marcaine with epinephrine were injected in the umbilical fold. A 5 mm incision was made. The Veress needle was placed into the peritoneal cavity, and its placement confirmed by aspiration and drop test. The abdominal cavity was insufflated with 3.4 L of CO2. The Veress needle was removed, and a 5 mm trocar was placed without difficulty. Initial inspection of the pelvis and abdomen revealed the findings noted above. A second incision was made 4 cm lateral to the midline on the left side through the previous laparoscopy incision, after 6 cc of 0.5% Marcaine with epinephrine were injected. A second 5 mm trocar was placed under direct visualization. The liver and gallbladder were visualized and were normal. An attempt was made to visualize the appendix but was unsuccessful. The right ovary was normal. The left ovary had a 2 cm simple cyst. Using the spatula cautery the cyst was entered and drained. Cautery was applied to collapse the cyst down. Hemostasis was achieved. The instruments were removed from the abdomen. The CO2 was allowed to escape. The incisions were repaired with 4-0 Monocryl in a subcuticular fashion. Steri-Strips and Allevyn dressings were placed. The moistened sponge stick was placed into the vagina. Sponge, lap, and instrument counts were correct x2. The patient tolerated the procedure well, and was taken to PACU in stable condition. Complications: none Post-operative Condition: stable Disposition: PACU Plan for aftercare: Home after recovery
[2024-02-03 12:06] VITALS: BP 95/59; PULSE 100; RESP 14; TEMP 36.5; O2SAT 94
[2024-02-03 12:11] VITALS: BP 105/74; PULSE 98; RESP 14; O2SAT 96
[2024-02-03 12:16] VITALS: BP 103/71; PULSE 84; RESP 15; O2SAT 98
[2024-02-03] MEDS: OXYCODONE IR 5 MG TABLET PO (12:19)
[2024-02-03 12:26] VITALS: BP 111/66; PULSE 80; RESP 14; O2SAT 99
== END 2024-02-03 12:41 | disposition home or self-care (01) ==
PROVIDERS: PCP Family Medicine; Referring Provider Obstetrics & Gynecology; Visit Provider Obstetrics & Gynecology
PROC: (CPT 49320; principal; 2024-02-03 10:45)
DX: R10.31 Right lower quadrant pain (principal); N83.8 Other noninflammatory disorders of ovary, fallopian tube and broad ligament; N83.292 Other ovarian cyst, left side
CPT/HCPCS: 58662; J0136; J0171; J1100; J1885; J2250; J2405; J2704; J3010; J3490

== ENCOUNTER → 2024-12-06 15:58 | Outpatient (CLI) | payer OTHER, SELFPAY ==
[2021-05-13 13:18] VITALS: BMI 26.6
--- NOTE | 2024-12-06 16:00 | DI.RAD.S_ITS ---
PROCEDURE: XR KNEE RT 3V INDICATIONS: R knee pain@ patella, family history bone cancer in knee TECHNIQUE: 3 views of the knee were acquired. COMPARISON: None. FINDINGS: Bones: No fractures or dislocations. No suspicious bony lesions. Soft tissues: No joint effusion. No suspicious soft tissue calcifications. IMPRESSION: No acute bony abnormality or significant effusion. Dictated by: Anthony Russell M.D. on 12/08/2024 at 10:33 Approved by: Anthony Russell M.D. on 12/08/2024 at 10:33
== END ==
LOC: RAD 15:59
PROVIDERS: PCP Family Medicine; Referring Provider Physician Assistant; Visit Provider Physician Assistant
DX: M25.561 Pain in right knee (principal)
CPT/HCPCS: 73562